=== PATIENT | male | born 1980 | race Caucasian/White ===

== ENCOUNTER → 2017-09-10 | Outpatient (CLI) | payer OTHER ==
[~2017-09-10] MED LIST: OPTIRAY 320 IV PRN
--- NOTE | 2017-09-10 13:54 | DIAGNOSTIC IMAGING REPORT ---
HEAD CTA HISTORY: Syncope. NECK PAIN TECHNIQUE: Multiaxial CT images of the head were performed both after the intravenous administration of contrast to evaluate the major cerebral vessels. Maximum intensity projection images were also obtained. A dose lowering technique was utilized adhering to the principles of ALARA. COMPARISON: None. FINDINGS: There is no mass, hematoma, midline shift, or acute infarct. Visualized intracranial internal carotid arteries, distal vertebral arteries, and basilar artery are widely patent. There is no significant stenosis, occlusion, or aneurysm seen within the bilateral ACAs, MCAs, or ventilation worker. The major dural venous sinuses are patent. IMPRESSION: No significant stenosis, occlusion, or aneurysm within the lower [place]. Electronically signed by: Jaspreet Townsend M.D. 09/10/2017 1:52 PM Dictated Date/Time: 09/10/2017 1:47 PM
--- NOTE | 2017-09-10 13:57 | DIAGNOSTIC IMAGING REPORT ---
HEAD CT NONCONTRAST CT DOSE: HISTORY: Syncopal apices. NECK PAIN TECHNIQUE: Multiaxial CT images of the head were performed without the use of intravenous contrast. Automated exposure control was utilized for this study. A dose lowering technique was utilized adhering to the principles of ALARA. Comparison: None. Findings: The paranasal sinuses and mastoid air cells are clear. The calvarium and skull base are intact. The ventricles and sulci are within normal limits. There is no mass, hematoma, midline shift, or acute infarct. Impression: No acute intracranial abnormality. Electronically signed by: Jaspreet Townsend M.D. 09/10/2017 1:56 PM Dictated Date/Time: 09/10/2017 1:52 PM
--- NOTE | 2017-09-10 14:10 | DIAGNOSTIC IMAGING REPORT ---
NECK CTA HISTORY: Neck pain. Syncope. TECHNIQUE: Multiaxial CT images of the neck were performed following the intravenous administration of contrast to evaluate the major cervical vessels. Maximum intensity projection images were also obtained. All measurements were calculated based on NASCET criteria. A dose lowering technique was utilized adhering to the principles of ALARA. COMPARISON STUDY: None. FINDINGS: The aortic arch and proximal great vessels are widely patent. There is no significant stenosis, occlusion, or dissection identified within the bilateral common carotid, internal carotid, or vertebral arteries. The bilateral internal jugular veins appear patent. Incidental note is made of a right azygos lobe in the right lung apex. A few punctate calcification within the bilateral parotid glands. IMPRESSION: No significant stenosis, occlusion, or dissection identified within the carotid or vertebral arteries. Electronically signed by: Jaspreet Townsend M.D. 09/10/2017 2:08 PM Dictated Date/Time: 09/10/2017 1:58 PM
== END | disposition home or self-care (01) ==
LOC: C.CTS 10:55
PROVIDERS: ATTEND Internal Medicine
DX: M54.2 Cervicalgia (principal)

== ENCOUNTER 2019-01-13 14:06 | Inpatient (IN) ==
--- OUTSIDE RECORDS SUMMARY | 2019-01-13 14:08 | External Medical Summary | Continuity of Care Document ---
:1980 Author Name Melissa Bajwa Address Unavailable Unavailable , Care Team Providers Name Role Phone Melissa Bajwa Unavailable [email or web address], UNKNOWN Unavailable Unavailable Problems Active medical history not documented Allergies and Adverse Reactions Allergy history not documented Medications Medications not documented Procedures Procedures not documented Immunizations Immunizations not documented Plan of Treatment Planned Observations Planned Goals not documented Results No Known Results Results not documented
[2019-01-13] MEDS ORDERED: SODIUM CHLORIDE 0.9% 1000ML 1,000 ML IV ONE (14:33)
[2019-01-13 14:44] LABS: Basophils # (auto) 0.02 K/uL (0-0.2); Basophils % (auto) 0.2 %; Eosinophils % (auto) 1.2 %; Hematocrit (blood only) 43.1 % (42-52); Hemoglobin 15.1 g/dL (14.0-18.0); Immature Granulocytes # (auto) 0.03 K/uL (0.00-0.02); Immature Granulocytes % (auto) 0.4 %; Lymphocytes # (auto) 2.55 K/uL (1.2-3.4); Mean Corpuscular Volume 85.9 fL (80-100); Mean Platelet Volume 10.1 fL (7.4-10.4); Monocytes # (auto) 0.83 K/uL (0.11-0.59); Monocytes % (auto) 9.8 %; Neutrophils # (auto) 4.98 K/uL (1.4-6.5); Neutrophils % (auto) 58.4 %; Platelet Count 214 K/uL (130-400); RDW Coefficient of Variation 13.4 % (11.5-14.5); RDW Standard Deviation 41.8 fL (36.4-46.3); Red Blood Count 5.02 M/uL (4.7-6.1); White Blood Count 8.51 K/uL (4.8-10.8)
[2019-01-13] MEDS ORDERED: ALBUT/IPRATROP 3MG/0.5MG NEB 3 ML VIAL NEB STA (14:47)
[2019-01-13] MEDS ORDERED: GI COCKTAIL ED USE PO ONE (14:47)
[2019-01-13] MEDS ORDERED: FAMOTIDINE 20 MG TAB PO ONE (14:47)
[2019-01-13] MEDS ORDERED: ACETAMINOPHEN 1,000 MG/100 ML VIAL IV STA (14:48)
[2019-01-13 15:00] LABS: Alanine Aminotransferase 40 U/L (12-78); Aspartate Aminotransferase 27 U/L (15-37); BUN Creatinine Ratio 16.9 (10-20); Blood Urea Nitrogen 15 mg/dl (7-18); Calcium 9.4 mg/dl (8.5-10.1); Carbon Dioxide 24 mmol/L (21-32); Chloride 108 mmol/L (98-107); Est GFR (African American) 124.3; Est GFR (Non-African American) 107.2; Glucose 83 mg/dl (70-99); Magnesium 2.5 mg/dl (1.8-2.4); Sodium 141 mmol/L (136-145)
[2019-01-13 15:13] LABS: Alkaline Phosphatase 78 U/L (45-117); Bilirubin,Total 0.3 mg/dl (0.2-1); Globulin 3.8 gm/dl (2.5-4.0); Total Protein 7.8 gm/dl (6.4-8.2)
--- NOTE | 2019-01-13 15:28 | XRay Report ---
XR chest 1V portable HISTORY: 38 years-old Male Chest Pain acute atypical chest pain with shortness of breath COMPARISON: Chest radiograph 01/14/2011 TECHNIQUE: Portable AP view of the chest FINDINGS: Cardiac mediastinal and hilar silhouettes are within normal limits. There is no pneumothorax, pleural effusion, focal airspace consolidation or overt pulmonary edema. Incidental note is made of an azygo s lobe and fissure. Bones of the chest appear grossly intact. IMPRESSION: No acute process. The above report was generated using voice recognition software. It may contain grammatical, syntax o r spelling errors. Electronically signed by: Kamari Salcedo M.D. 01/13/2019 3:26 PM
[2019-01-13] MEDS ORDERED: OPTIRAY 320 125ml IV PRN (16:02)
[2019-01-13 16:09] LABS: Partial Thromboplastin Time 26.2 Seconds (21.0-31.0); Prothrombin Time 9.9 Seconds (9.0-12.0)
--- NOTE | 2019-01-13 16:12 | CT Scan Report ---
CT ANGIOGRAM OF THE CHEST CLINICAL HISTORY: Dyspnea. COMPARISON STUDY: Chest x-ray dated 01/13/2019. TECHNIQUE: Following the IV administration of 107 cc of Optiray 320, CT angiogram of the chest was pe rformed from the upper abdomen to the thoracic inlet utilizing the pulmonary embolus protocol. Images are reviewed in the axial, sagittal, and coronal planes. 3-D MIPS images are created and assessed. I V contrast was administered without complication. A dose lowering technique was utilized adhering to the principles of ALARA. The examination is modestly degraded by motion artifact. CT DOSE: 939.10 mGy.cm FINDINGS: Thyroid: Imaged portions of the thyroid gland are normal in size and attenuation. Thoracic aorta: The thoracic aorta is normal in caliber and demonstrates 4-vessel variant arch anatom y. No dissection is seen. Pulmonary vasculature: The pulmonary trunk is normal in caliber. There are no filling defects identif ied in main, lobar, or segmental pulmonary branches to suggest pulmonary embolus. Heart: The heart is mildly enlarged and without pericardial effusion. Lungs and pleural spaces: Evaluation of the lung parenchyma is modestly degraded by motion artifact. There is no airspace consolidation or pleural effusion. Mild bibasilar atelectasis is noted. There is mild diffuse peribronchial thickening. An accessory azygous fissure is incidentally noted. The trach ea and central airways are patent. A 6 mm left upper lobe pulmonary nodule is seen on image #[id number]. Mediastinum: There is no mediastinal lymphadenopathy. Shanna: Clear. Axillae: There is no axillary lymphadenopathy. Upper abdomen: There is hepatic steatosis with sparing adjacent to the gallbladder fossa. A small hia yusra hernia is noted. Skeletal structures: No lytic or blastic bony lesions are seen. IMPRESSION: 1. There is no evidence of pulmonary embolus in the main, lobar, or segmental pulmonary arteries. 2. Mild cardiac enlargement. 3. There is no airspace consolidation or pleural effusion. 4. Mild diffuse peribronchial thickening suggests reactive airway disease. Clinical correlation will be required. 5. There is a 6 mm pathologically indeterminant pulmonary nodule in the left upper lobe. This can be followed if clinically warranted. See below. 6. Hepatic steatosis. Please refer to below summary of Fleischner criteria recommendations for follow-up of incidental CT n seb [place], Guidelines for management of small pulmonary nodules detected on CT scans: A sta tement from the Fleischner Society, Radiology 237: [phone].) SOLID NODULES Solitary nodule size: <6 mm * low risk patients: no follow-up needed * high risk patients: optional CT at 12 months Solitary nodule size: 6-8 mm * low risk patients: follow-up at 6-12 months, then consider further follow-up at 18-24 months * high risk patients: initial follow-up CT at 6-12 months and then at 18-24 months if no change Solitary nodule size: >8 mm * either low or high risk patients - consider follow-up CT at 3 months, and/or CT-PET, and/or biopsy Multiple nodules size: <6 mm * low risk patients: no routine follow-up * high risk patients: optional CT at 12 months Multiple nodules size: 6-8 mm * low risk patients: follow-up at 3-6 months, then consider further follow-up at 18-24 months * high risk patients: follow-up at 3-6 months, then at 18-24 months if no change Multiple nodules size: >8 mm * low risk patients: follow-up at 3-6 months, then consider further follow-up at 18-24 months * high risk patients: follow-up at 3-6 months, then at 18-24 months if no change Note: newly detected indeterminate nodule in persons 35 years of age or older. * low risk patients: minimal or absent history of smoking and/or other known risk factors * high risk patients: history of smoking or of other known risk factors (e.g. first degree relative with lung cancer, or exposure to asbestos, radon, uranium) * if a nodule up to 8 mm is partly solid or is ground glass further follow-up is required after 24 m onths to exclude possible slow growing adenocarcinoma (FITO) SUBSOLID NODULES Solitary pure ground-glass nodule * nodule size <6 mm - no CT follow-up required * nodule size >=6 mm - follow-up CT at 6-12 months, then every 2 years until 5 years Solitary part-solid nodule * nodule size <6 mm - no CT follow-up required * nodule size >=6 mm - follow-up CT at 3-6 months. If unchanged, and solid component remains <6 mm, then annual follow-up for 5 years Multiple subsolid nodules * nodule size <6 mm - follow-up CT at 3-6 months, consider further follow-up at 2 and 4 years if sta ble * nodule size >=6 mm - follow-up CT at 3-6 months, subsequent management based on the most suspiciou s nodule(s) Electronically signed by: Mahesh Garsia M.D. 01/13/2019 4:10 PM
[2019-01-13] MEDS ORDERED: NITROGLYCERIN SL 0.4 MG/TAB TAB SL STA (16:37)
[2019-01-13] MEDS ORDERED: ASPIRIN CHEW 324 MG PO STA (16:39)
--- NOTE | 2019-01-13 17:05 | Emergency Department Note ---
Entered by Scott Liz acting as a scribe for Sam Burden MD History of Present Illness General Chief complaint: Cardiac Assessment Stated complaint: TIGHTNESS IN CHEST,SOB Time Seen by Provider: 01/13/19 14:32 Source: patient History of Present Illness Onset (ago): week(s) (past couple) Location: chest Pain Consistency: + other (persistent and worsening) Quality: + other (chest tightness, shortness of breath) Associated symptoms: + cough; no fever/chills The patient is a 38 year old male who presents to the Emergency Room with complaints of persistent and gradually worsening chest tightness and shortness of breath. The patient reports that his symptoms started a couple of weeks ago while hunting, stating that he became short of breath and developed pain like acid reflux. Over the past couple days his shortness of breath and chest tightness have been worsening. He states that his symptoms are not worse with lying flat. He notes a cough productive of yellow/white sputum. He reports occasional radiating pain into his throat with nausea, but he does not currently feel nauseous and has not vomited. He denies fevers, history of smoking/second- hand exposure, allergies, history of cancer, recent travel/immobility/surgeries, or family history of [place] at a young age. He states that he was sent to the ER by his PCP. He took Dayquil this morning at 08:00. Home Medications Home Medications Medication Instructions Recorded Confirmed Type [id number] 2 cap PO UD 01/13/19 01/13/19 History [Vicks DayQuil Cold-Flu Relief] Allergies Allergy/AdvReac Type Severity Reaction Status Date / Time ibuprofen AdvReac Unknown NAUSEA Verified 01/13/19 15:23 Past Med/Surg History Medical History Anxiety PTSD (post-traumatic stress disorder) Surgical History No history of previous surgery (Chronic) Family History Father Diabetes Mother Cancer Social History Preferred Language: Romanian Communication Ability: Effective Beliefs That Will Affect Care: None Current Living Situation: Spouse Other Information That Helps Us Care for You: No Feels Safe at Home: Yes Safety Concerns: Feels Safe At This Time Smoking Status: Never smoker Tobacco Type: smokeless tobacco Hx Alcohol Use: Yes (6 drinks/week) Alcohol type: beer Hx Substance Use: No Review of Systems See HPI for pertinent positives & negatives. and A total of 10 systems reviewed and were otherwise negative Physical Exam Vital Signs Vital Signs - 24 hr 01/13/19 14:10 01/13/19 14:35 01/13/19 14:36 Temperature 37.0 C Temperature Source Oral Sepsis Recent Fever Within 48 Hours No Sepsis Action Taken by Nursing No Action Required Pulse Rate 80 70 Pulse Rate [Radial] Pulse Rate from SpO2 Sensor 72 Respiratory Rate 20 20 Blood Pressure 143/95 H 161/88 H Blood Pressure [Left Arm] Blood Pressure Mean 111 112 Blood Pressure Mean [Left Arm] Blood Pressure Position [Left Arm] Pulse Oximetry 95 96 93 Oxygen Delivery Method Room Air Room Air Room Air 01/13/19 15:00 01/13/19 15:30 01/13/19 15:31 Temperature Temperature Source Sepsis Recent Fever Within 48 Hours Sepsis Action Taken by Nursing Pulse Rate 75 65 67 Pulse Rate [Radial] Pulse Rate from SpO2 Sensor 75 64 68 Respiratory Rate 17 14 20 Blood Pressure 134/83 Blood Pressure [Left Arm] Blood Pressure Mean 100 Blood Pressure Mean [Left Arm] Blood Pressure Position [Left Arm] Pulse Oximetry 93 91 92 Oxygen Delivery Method Room Air Room Air Room Air 01/13/19 15:32 01/13/19 16:04 01/13/19 16:30 Temperature Temperature Source Sepsis Recent Fever Within 48 Hours Sepsis Action Taken by Nursing Pulse Rate 66 76 86 Pulse Rate [Radial] Pulse Rate from SpO2 Sensor 62 81 86 Respiratory Rate 14 20 28 H Blood Pressure 145/86 H Blood Pressure [Left Arm] Blood Pressure Mean 105 Blood Pressure Mean [Left Arm] Blood Pressure Position [Left Arm] Pulse Oximetry 93 97 97 Oxygen Delivery Method Room Air Room Air Room Air 01/13/19 16:31 01/13/19 17:00 01/13/19 17:01 Temperature Temperature Source Sepsis Recent Fever Within 48 Hours Sepsis Action Taken by Nursing Pulse Rate 79 69 70 Pulse Rate [Radial] Pulse Rate from SpO2 Sensor 80 68 69 Respiratory Rate 23 16 19 Blood Pressure 152/72 H 156/82 H Blood Pressure [Left Arm] Blood Pressure Mean 98 106 Blood Pressure Mean [Left Arm] Blood Pressure Position [Left Arm] Pulse Oximetry 97 97 96 Oxygen Delivery Method Room Air Room Air Room Air 01/13/19 17:30 01/13/19 17:31 01/13/19 17:32 Temperature Temperature Source Sepsis Recent Fever Within 48 Hours Sepsis Action Taken by Nursing Pulse Rate 62 67 73 Pulse Rate [Radial] Pulse Rate from SpO2 Sensor 62 68 72 Respiratory Rate 17 15 15 Blood Pressure 148/85 H Blood Pressure [Left Arm] Blood Pressure Mean 106 Blood Pressure Mean [Left Arm] Blood Pressure Position [Left Arm] Pulse Oximetry 97 97 97 Oxygen Delivery Method Room Air Room Air Room Air 01/13/19 18:00 01/13/19 18:01 01/13/19 19:29 Temperature 36.8 C Temperature Source Oral Sepsis Recent Fever Within 48 Hours Sepsis Action Taken by Nursing Pulse Rate 63 61 Pulse Rate [Radial] 73 Pulse Rate from SpO2 Sensor 65 61 Respiratory Rate 23 20 20 Blood Pressure 137/74 Blood Pressure [Left Arm] 150/86 H Blood Pressure Mean 95 Blood Pressure Mean [Left Arm] 107 Blood Pressure Position [Left Arm] Lying Pulse Oximetry 95 96 96 Oxygen Delivery Method Room Air Room Air Room Air 01/13/19 23:24 01/14/19 01:32 01/14/19 02:56 Temperature 36.4 C L 36.6 C Temperature Source Axillary Axillary Sepsis Recent Fever Within 48 Hours Sepsis Action Taken by Nursing Pulse Rate 53 L Pulse Rate [Radial] 54 L 59 L Pulse Rate from SpO2 Sensor Respiratory Rate 19 19 Blood Pressure Blood Pressure [Left Arm] 112/63 119/74 Blood Pressure Mean Blood Pressure Mean [Left Arm] 79 89 Blood Pressure Position [Left Arm] Lying Lying Pulse Oximetry 95 95 Oxygen Delivery Method Room Air Room Air GENERAL: Awake, alert, fatigued-appearing, in no distress, BMI 37.7kg/m2 HENT: Normocephalic, atraumatic. Mucous membranes dry. EYES: Normal conjunctiva. Sclera non-icteric. NECK: Supple. No nuchal rigidity. FROM. No JVD. RESPIRATORY: Scant intermittent wheeze, otherwise clear. CARDIAC: Regular rate, normal rhythm. Extremities warm and well perfused. Pulses equal. ABDOMEN: Soft, non-distended. Mild epigastric discomfort without discrete tenderness to palpation. No rebound or guarding. No masses. RECTAL: Deferred. MUSCULOSKELETAL: Chest with mild reproducible anterior CW discomfort. The back is symmetrical on inspection without obvious abnormality. There is no CVA tenderness to palpation. No joint edema. LOWER EXTREMITIES: Calves are equal size bilaterally and non-tender. No edema. No discoloration. NEURO: Normal sensorium. No sensory or motor deficits noted. SKIN: No rash or jaundice noted. Course 1443: The patient was evaluated in room B3B. A complete history and physical examination were performed. 1545: I checked on the patient and updated him on current results and plan. 1622: I reevaluated the patient, who appears to be doing well. Limited bedside ultrasound performed by ne showed no overt pericardial effusion and a grossly normal EF. 1635: I consulted Kenya Blackburn PA-C: [facility] Hospitalist. The patient will be reevaluated for hospitalization. Administered Medications Acetaminophen (Tylenol) 650 mg PO Q4H PRN PRN Reason: Pain or Fever Stop: 02/12/19 18:24 Last Admin: 01/14/19 03:01 Dose: 650 mg Documented by: [id number] Atorvastatin Calcium (Lipitor) 80 mg PO QAM [facility] Stop: 02/12/19 19:29 Last Admin: 01/13/19 19:59 Dose: 80 mg Documented by: [id number] Famotidine 20 mg/ Syringe 5 mls @ 2.5 mls/min IV BID [facility] Stop: 02/12/19 20:59 Last Admin: 01/13/19 19:59 Dose: 2.5 mls/min Documented by: [id number] Sodium Chloride (Nss 1000ml) 1,000 mls @ 80 mls/hr IV .[id number] [facility] Stop: 02/12/19 23:54 Last Admin: 01/13/19 20:05 Dose: 80 mls/hr Documented by: [id number] Heparin Sodium/Dextrose (Heparin Sodium/Dextrose) 25,000 units in 500 mls @ 36 mls/hr IV .[id number] [facility]; Protocol Stop: 02/12/19 19:44 Last Titration: 01/14/19 00:22 Dose: 1,800 units/hr, 36 mls/hr Documented by: [id number] Cosigned by: [id number] Titration: 01/13/19 23:15 Dose: 1,800 units/hr, 36 mls/hr Documented by: [id number] Cosigned by: [id number] Admin: 01/13/19 20:17 Dose: 1,800 units/hr, 36 mls/hr Documented by: [id number] Cosigned by: [id number] Nitroglycerin (Nitro-Bid 2%) 0.5 inch EXT Q6H [facility] Stop: 02/12/19 19:59 Last Admin: 01/14/19 01:53 Dose: 0.5 inch Documented by: [id number] Admin: 01/13/19 19:26 Dose: 0.5 inch Documented by: [id number] Discontinued Medications Al Hydrox/Mg Hydrox/Simethicone () 1 dose PO ONE ONE Stop: 01/13/19 14:48 Last Admin: 01/13/19 15:00 Dose: 1 dose Documented by: [id number] Albuterol (Duoneb) 3 ml NEB NOW STA Stop: 01/13/19 14:48 Last Admin: 01/13/19 14:58 Dose: 3 ml Documented by: [id number] Aspirin (Aspirin) 324 mg PO NOW STA Stop: 01/13/19 16:40 Last Admin: 01/13/19 16:57 Dose: 324 mg Documented by: [id number] Famotidine (Pepcid) 20 mg PO NOW ONE Stop: 01/13/19 14:48 Last Admin: 01/13/19 14:58 Dose: 20 mg Documented by: [id number] Heparin Sodium (Porcine) (Heparin Iv Bolus) Confirm Administered Dose 10,000 units .ROUTE .STK-MED ONE Stop: 01/13/19 18:05 Last Admin: 01/13/19 18:08 Dose: 8,000 units Documented by: [id number] Cosigned by: [id number] Heparin Sodium/Dextrose () 1 ea IV NOW STA; Protocol Stop: 01/13/19 17:33 Last Admin: 01/13/19 18:09 Dose: Not Given Documented by: [id number] Heparin Sodium/Dextrose (Heparin Sodium/Dextrose) Confirm Administered Dose 25,000 units IV .STK-MED ONE Stop: 01/13/19 18:05 Last Admin: 01/13/19 18:09 Dose: 36 ml Documented by: [id number] Cosigned by: [id number] Sodium Chloride (Nss 1000ml) 1,000 mls @ 999 mls/hr IV .[id number] ONE Stop: 01/13/19 15:33 Last Infusion: 01/13/19 15:53 Dose: 0 mls/hr Documented by: [id number] Admin: 01/13/19 14:58 Dose: 999 mls/hr Documented by: [id number] Acetaminophen (Ofirmev) 1,000 mg in 100 mls @ 400 mls/hr IV NOW STA Stop: 01/13/19 15:02 Last Infusion: 01/13/19 15:14 Dose: 0 mls/hr Documented by: [id number] Admin: 01/13/19 14:59 Dose: 400 mls/hr Documented by: [id number] Dextrose/Sodium Chloride (D5w And Nss) 1,000 mls @ 80 mls/hr IV .[id number] [facility]IZ[facility]ETH Stop: 01/14/19 23:55 Last Infusion: 01/13/19 22:13 Dose: 0 mls/hr Documented by: [id number] Admin: 01/13/19 18:46 Dose: 80 mls/hr Documented by: [id number] Ioversol (Optiray 320 125ml) 107 ml IV ONCE PRN PRN Reason: Interaction Checking Stop: 01/17/19 16:01 Last Admin: 01/13/19 16:02 Dose: 107 ml Documented by: [id number] Lorazepam (Ativan) 1 mg PO NOW STA Stop: 01/13/19 20:04 Last Admin: 01/13/19 20:17 Dose: 1 mg Documented by: [id number] Metoprolol Tartrate (Lopressor) 12.5 mg PO ONE STA Stop: 01/13/19 19:07 Last Admin: 01/13/19 19:59 Dose: 12.5 mg Documented by: [id number] Nitroglycerin (Nitrostat) 0.4 mg SL NOW STA Stop: 01/13/19 16:38 Last Admin: 01/13/19 16:58 Dose: Not Given Documented by: [id number] Medical Decision Making Differential Diagnosis Differential diagnosis includes: cardiac ischemia, aortic dissection, pulmonary embolism, pneumonia, pneumothorax, musculoskeletal, infections, pericarditis, myocarditis, esophageal rupture, gastrointestinal, as well as others were entertained. Medical Records Attestation: I reviewed the patient's medical records. Home Medications Current Medication List: was personally reviewed by me Laboratory Data Attestation: I reviewed the patient's lab results. Result diagrams: 01/13/19 14:35 01/13/19 14:35 Lab Results 01/13/19 01/13/19 01/13/19 Range/Units 14:35 14:35 14:35 WBC 8.51 (4.8-10.8) K/uL RBC 5.02 (4.7-6.1) M/uL Hgb 15.1 (14.0-18.0) g/dL Hct 43.1 (42-52) % MCV 85.9 (80-100) fL MCH 30.1 (25-34) pg MCHC 35.0 (32-36) g/dL RDW Std Deviation 41.8 (36.4-46.3) fL RDW Coeff of Kerri 13.4 (11.5-14.5) % Plt Count 214 (130-400) K/uL MPV 10.1 (7.4-10.4) fL Immature Gran % (Auto) 0.4 % Neut % (Auto) 58.4 % Lymph % (Auto) 30.0 % Whitley % (Auto) 9.8 % Eos % (Auto) 1.2 % Baso % (Auto) 0.2 % Immature Gran # (Auto) 0.03 H (0.00-0.02) K/uL Neut # (Auto) 4.98 (1.4-6.5) K/uL Lymph # (Auto) 2.55 (1.2-3.4) K/uL Whitley # (Auto) 0.83 H (0.11-0.59) K/uL Eos # (Auto) 0.10 (0-0.5) K/uL Baso # (Auto) 0.02 (0-0.2) K/uL ESR (0-14) mm/hr PT (9.0-12.0) Seconds INR (0.9-1.1) APTT (21.0-31.0) Seconds PTT Ratio Sodium 141 (136-145) mmol/L Potassium 4.0 (3.5-5.1) mmol/L Chloride 108 H (98-107) mmol/L Carbon Dioxide 24 (21-32) mmol/L Anion Gap 9.0 (3-11) BUN 15 (7-18) mg/dl Creatinine 0.90 (0.6-1.4) mg/dl Est Cr Clr Drug Dosing Not Reportable Est GFR ( Amer) 124.3 Est GFR (Non-Af Amer) 107.2 BUN/Creatinine Ratio 16.9 (10-20) Glucose 83 (70-99) mg/dl Calcium 9.4 (8.5-10.1) mg/dl Phosphorus 4.0 Cancelled (2.5-4.9) mg/dl Magnesium 2.5 H (1.8-2.4) mg/dl Total Bilirubin 0.3 (0.2-1) mg/dl AST 27 (15-37) U/L ALT 40 (12-78) U/L Alkaline Phosphatase 78 (45-117) U/L Troponin I 1.100 H* (0-0.045) ng/ml Total Protein 7.8 (6.4-8.2) gm/dl Albumin 4.0 (3.4-5.0) gm/dl Globulin 3.8 (2.5-4.0) gm/dl Albumin/Globulin Ratio 1.0 (0.9-2) Lipase 149 (73-393) U/L 01/13/19 01/13/19 01/13/19 Range/Units 14:35 14:35 17:15 WBC (4.8-10.8) K/uL RBC (4.7-6.1) M/uL Hgb (14.0-18.0) g/dL Hct (42-52) % MCV (80-100) fL MCH (25-34) pg MCHC (32-36) g/dL RDW Std Deviation (36.4-46.3) fL RDW Coeff of Kerri (11.5-14.5) % Plt Count (130-400) K/uL MPV (7.4-10.4) fL Immature Gran % (Auto) % Neut % (Auto) % Lymph % (Auto) % Whitley % (Auto) % Eos % (Auto) % Baso % (Auto) % Immature Gran # (Auto) (0.00-0.02) K/uL Neut # (Auto) (1.4-6.5) K/uL Lymph # (Auto) (1.2-3.4) K/uL Whitley # (Auto) (0.11-0.59) K/uL Eos # (Auto) (0-0.5) K/uL Baso # (Auto) (0-0.2) K/uL ESR 24 H (0-14) mm/hr PT 9.9 (9.0-12.0) Seconds INR 1.0 (0.9-1.1) APTT 26.2 (21.0-31.0) Seconds PTT Ratio 1.0 Sodium (136-145) mmol/L Potassium (3.5-5.1) mmol/L Chloride (98-107) mmol/L Carbon Dioxide (21-32) mmol/L Anion Gap (3-11) BUN (7-18) mg/dl Creatinine (0.6-1.4) mg/dl Est Cr Clr Drug Dosing Est GFR ( Amer) Est GFR (Non-Af Amer) BUN/Creatinine Ratio (10-20) Glucose (70-99) mg/dl Calcium (8.5-10.1) mg/dl Phosphorus (2.5-4.9) mg/dl Magnesium (1.8-2.4) mg/dl Total Bilirubin (0.2-1) mg/dl AST (15-37) U/L ALT (12-78) U/L Alkaline Phosphatase (45-117) U/L Troponin I 1.580 H* (0-0.045) ng/ml Total Protein (6.4-8.2) gm/dl Albumin (3.4-5.0) gm/dl Globulin (2.5-4.0) gm/dl Albumin/Globulin Ratio (0.9-2) Lipase (73-393) U/L 01/13/19 01/13/19 Range/Units 22:46 23:48 WBC (4.8-10.8) K/uL RBC (4.7-6.1) M/uL Hgb (14.0-18.0) g/dL Hct (42-52) % MCV (80-100) fL MCH (25-34) pg MCHC (32-36) g/dL RDW Std Deviation (36.4-46.3) fL RDW Coeff of Kerri (11.5-14.5) % Plt Count (130-400) K/uL MPV (7.4-10.4) fL Immature Gran % (Auto) % Neut % (Auto) % Lymph % (Auto) % Whitley % (Auto) % Eos % (Auto) % Baso % (Auto) % Immature Gran # (Auto) (0.00-0.02) K/uL Neut # (Auto) (1.4-6.5) K/uL Lymph # (Auto) (1.2-3.4) K/uL Whitley # (Auto) (0.11-0.59) K/uL Eos # (Auto) (0-0.5) K/uL Baso # (Auto) (0-0.2) K/uL ESR (0-14) mm/hr PT (9.0-12.0) Seconds INR (0.9-1.1) APTT 59.2 H* (21.0-31.0) Seconds PTT Ratio 2.2 Sodium (136-145) mmol/L Potassium (3.5-5.1) mmol/L Chloride (98-107) mmol/L Carbon Dioxide (21-32) mmol/L Anion Gap (3-11) BUN (7-18) mg/dl Creatinine (0.6-1.4) mg/dl Est Cr Clr Drug Dosing Est GFR ( Amer) Est GFR (Non-Af Amer) BUN/Creatinine Ratio (10-20) Glucose (70-99) mg/dl Calcium (8.5-10.1) mg/dl Phosphorus (2.5-4.9) mg/dl Magnesium (1.8-2.4) mg/dl Total Bilirubin (0.2-1) mg/dl AST (15-37) U/L ALT (12-78) U/L Alkaline Phosphatase (45-117) U/L Troponin I 3.140 H* (0-0.045) ng/ml Total Protein (6.4-8.2) gm/dl Albumin (3.4-5.0) gm/dl Globulin (2.5-4.0) gm/dl Albumin/Globulin Ratio (0.9-2) Lipase (73-393) U/L Imaging Data Radiologist's Impression: Radiology results as stated below per my review and the radiologist's interpretation: CT ANGIOGRAM OF THE CHEST CLINICAL HISTORY: Dyspnea. COMPARISON STUDY: Chest x-ray dated 01/13/2019. TECHNIQUE: Following the IV administration of 107 cc of Optiray 320, CT angiogram of the chest was performed from the upper abdomen to the thoracic inlet utilizing the pulmonary embolus protocol. Images are reviewed in the axial, sagittal, and coronal planes. 3-D MIPS images are created and assessed. IV contrast was administered without complication. A dose lowering technique was utilized adhering to the principles of ALARA. The examination is modestly degraded by motion artifact. CT DOSE: 939.10 mGy.cm FINDINGS: Thyroid: Imaged portions of the thyroid gland are normal in size and attenuation. Thoracic aorta: The thoracic aorta is normal in caliber and demonstrates 4- vessel variant arch anatomy. No dissection is seen. Pulmonary vasculature: The pulmonary trunk is normal in caliber. There are no filling defects identified in main, lobar, or segmental pulmonary branches to suggest pulmonary embolus. Heart: The heart is mildly enlarged and without pericardial effusion. Lungs and pleural spaces: Evaluation of the lung parenchyma is modestly degraded by motion artifact. There is no airspace consolidation or pleural effusion. Mild bibasilar atelectasis is noted. There is mild diffuse peribronchial thickening. An accessory azygous fissure is incidentally noted. The trachea and central airways are patent. A 6 mm left upper lobe pulmonary nodule is seen on image #172. Mediastinum: There is no mediastinal lymphadenopathy. Shanna: Clear. Axillae: There is no axillary lymphadenopathy. Upper abdomen: There is hepatic steatosis with sparing adjacent to the gallbladder fossa. A small hiatal hernia is noted. Skeletal structures: No lytic or blastic bony lesions are seen. IMPRESSION: 1. There is no evidence of pulmonary embolus in the main, lobar, or segmental pulmonary arteries. 2. Mild cardiac enlargement. 3. There is no airspace consolidation or pleural effusion. 4. Mild diffuse peribronchial thickening suggests reactive airway disease. Clinical correlation will be required. 5. There is a 6 mm pathologically indeterminant pulmonary nodule in the left upper lobe. This can be followed if clinically warranted. See below. 6. Hepatic steatosis. Please refer to below summary of Fleischner criteria recommendations for follow- up of incidental CT nodules (Servando Suero, Guidelines for management of small pulmonary nodules detected on CT scans: A statement from the Fleischner Society, Radiology 237: [phone].) SOLID NODULES Solitary nodule size: <6 mm * low risk patients: no follow-up needed * high risk patients: optional CT at 12 months Solitary nodule size: 6-8 mm * low risk patients: follow-up at 6-12 months, then consider further follow-up at 18-24 months * high risk patients: initial follow-up CT at 6-12 months and then at 18-24 months if no change Solitary nodule size: >8 mm * either low or high risk patients - consider follow-up CT at 3 months, and/or CT-PET, and/or biopsy Multiple nodules size: <6 mm * low risk patients: no routine follow-up * high risk patients: optional CT at 12 months Multiple nodules size: 6-8 mm * low risk patients: follow-up at 3-6 months, then consider further follow-up at 18-24 months * high risk patients: follow-up at 3-6 months, then at 18-24 months if no change Multiple nodules size: >8 mm * low risk patients: follow-up at 3-6 months, then consider further follow-up at 18-24 months * high risk patients: follow-up at 3-6 months, then at 18-24 months if no change Note: newly detected indeterminate nodule in persons 35 years of age or older. * low risk patients: minimal or absent history of smoking and/or other known risk factors * high risk patients: history of smoking or of other known risk factors (e.g. first degree relative with lung cancer, or exposure to asbestos, radon, uranium) * if a nodule up to 8 mm is partly solid or is ground glass further follow-up is required after 24 months to exclude possible slow growing adenocarcinoma (FITO) SUBSOLID NODULES Solitary pure ground-glass nodule * nodule size <6 mm - no CT follow-up required * nodule size >=6 mm - follow-up CT at 6-12 months, then every 2 years until 5 years Solitary part-solid nodule * nodule size <6 mm - no CT follow-up required * nodule size >=6 mm - follow-up CT at 3-6 months. If unchanged, and solid component remains <6 mm, then annual follow-up for 5 years Multiple subsolid nodules * nodule size <6 mm - follow-up CT at 3-6 months, consider further follow-up at 2 and 4 years if stable * nodule size >=6 mm - follow-up CT at 3-6 months, subsequent management based on the most suspicious nodule(s) Electronically signed by: Mahesh Garsia M.D. 01/13/2019 4:10 PM XR chest 1V portable HISTORY: 38 years-old Male Chest Pain acute atypical chest pain with shortness of breath COMPARISON: Chest radiograph 01/14/2011 TECHNIQUE: Portable AP view of the chest FINDINGS: Cardiac mediastinal and hilar silhouettes are within normal limits. There is no pneumothorax, pleural effusion, focal airspace consolidation or overt pulmonary edema. Incidental note is made of an azygos lobe and fissure. Bones of the chest appear grossly intact. IMPRESSION: No acute process. The above report was generated using voice recognition software. It may contain grammatical, syntax or spelling errors. Electronically signed by: Kamari Salcedo M.D. 01/13/2019 3:26 PM ECG Data Attestation: I personally reviewed and interpreted this ECG as follows: Indication: chest pain Rate (beats per minute): 62 Rhythm: normal sinus Findings: + other (normal axis); no ST depression and no ST elevation Blood Pressure Blood Pressure Findings: Normal blood pressure Blood Pressure Disposition: did not require urgent referral MDM Narrative The patient is a pleasant 38-year-old gentleman with a past medical history of PTSD and anxiety who presents emergency department with 2 weeks of worsening chest tightness and dyspnea in the setting of having cough and congestion that developed during a hunting trip per hpi. Patient reports he saw his PCP today because he felt particularly worse and was sent to the ED for evaluation. On arrival patient is fatigued appearing but no acute distress, afebrile with stable vital signs. Patient has scant intermittent wheezes but is otherwise clear. EKG unremarkable without evidence of acute ischemia. CXR negative. WBC, H/H, platelets wnl. Chemistry without acidosis. LFTs unremarkable. Troponin 1.1 of unclear significance given the patient's constant symptoms and reassuring EKG. Of note, the patient denies any increased pain when lying flat at night a nd so pericarditis is less likely. Additionally, he does have reproducible anterior chest wall and epigastric discomfort. CTA negative for PE and does demonstrate evidence of reactive airway disease which is consistent with the patient's symptoms and exam. Limited bedside echo demonstrates no overt pericardial effusion and shows grossly normal EF. Patient denies any improvement with IV fluids, Pepcid, GI cocktail, APAP. However, he also reports that his discomfort is quite mild. Case was discussed with Ori Dickeyisinger PAC, who evaluate the patient for admission. Will trial dose of nitro to see if symptoms improve. Ordered for ASA. Repeat delta 2-hour troponin pending and so will defer heparin at this time. Impression & Plan Chest pain, Elevated troponin Discharge Plan Visit Data *Final* Discharge Date/Time: 01/13/19 18:15 Chief Complaint: Cardiac Assessment Stated Complaint: TIGHTNESS IN CHEST,SOB ED Provider: Sam Burden Discharge Problem: Chest pain, Elevated troponin Patient Disposition: Admitted As Inpatient Discharge Instructions Interventions: ED Discharge Assessment Last Done: 01/13/19 18:15 Discharge Problem: Chest pain Qualifiers: Chest pain type: unspecified Qualified Code(s): R07.9 - Chest pain, unspecified The scribe's documentation has been prepared under my direction and personally reviewed by me in its entirety. I confirm that the note above accurately reflects all work, treatment, procedures, and medical decision making performed by me.
--- NOTE | 2019-01-13 17:50 | History & Physical Report ---
Date of Service January 13, 2019 Assessment & Plan (1) Chest pain: (2) Elevated troponin: Pt presented to ER with c/o SOB and intermittent CP x 2 days. CP described as aching across upper chest and also reports low mid chest pain that radiates up to neck and some aching to mid back that radiates up his back. He reports past 2 days with hoarseness and SOB. No fever/chills, cough, sore throat or rhinorrhea. 1 week ago was turkey hunting and walked up hill and became SOB. In ER pt afebrile, P: 80, R: 20, BP: 143/95, 95% on RA Labs unremarkable except for Troponin: 1.1. EKG: NSR, rate [address] changes. CTA CHEST: There is no evidence of pulmonary embolus in the main, lobar, or segmental pulmonary arteries. Mild cardiac enlargement. There is no airspace consolidation or pleural effusion. Mild diffuse peribronchial thickening suggests reactive airway disease. -In ER was given GI cocktail, pepcid, ASA 324mg, albuterol neb. Pt has current aching across upper chest and rates 2/10 on pain scale. Denies current SOB. DDX: NSTEMI, pericarditis, stress induced cardiomyopathy, GERD, URI ACS risk factors: obesity -Monitor Vitals -Repeat EKG in am -Will trend troponin -Echo -ESR pending -lipid panel and A1c in AM -ASA -Nitro prn CP and repeat EKG for CP -NPO -Pepcid IV -Cardiology consult, spoke to investor relations specialist recommends starting heparin. Appreciate recommendations (3) Pulmonary nodule: 6 mm pathologically indeterminant pulmonary nodule in the left upper lobe noted on CT Chest -out patient CT chest follow up 6-12 months DVT Prophylaxis -On Heparin IV Full Code Follows with Dr Cason for routine care Pt was seen with Dr Rodrigues. See addendum History of Present Illness Chief Complaint: CP Primary Care Provider: Phong Cason MD Pt is 38 y/o M without significant PMH presented to ER with c/o SOB and intermittent CP x 2 days. Pt states past 2 days with aching across upper chest and also reports low mid chest pain that radiates up to neck and some aching to mid back that radiates up his back. Current aching across upper chest and rates 2/10 on pain scale. He reports past 2 days has hoarseness and SOB and he felt like he was getting bronchitis, however denies any cough, wheezing, fever/chills, rhinorrhea, sore throat, dysphagia. His had recent bronchitis. Pt states 1 week ago was turkey hunting and walked up hill and became SOB. Denies other exertional dyspnea or CP previously. Pt reports has been under recent stress as his had a miscarriage and is scheduled for procedure tomorrow. Denies hx GERD. Pt without known hx HTN, HLD or DM. Was former smokeless tobacco user. No known FH CAD. Denies diaphoresis, N/V/D/C, HOLLIS, dizziness, syncope, vision changes, orthopnea, palpitations, choking, otalgia, abdominal pain, paresthesias, weakness, extremity weakness, extremity edema, rashes, urinary symptoms. Allergies Allergy/AdvReac Type Severity Reaction Status Date / Time ibuprofen AdvReac Unknown NAUSEA Verified 01/13/19 15:23 Home Medications Home Medications Medication Instructions Recorded Confirmed Type iqazpdsbiodqm-YM-[id number] 2 cap PO UD 01/13/19 01/13/19 History [Rebeca DayPhi Cold-Flu Relief] Past Med/Surg History Medical History Anxiety PTSD (post-traumatic stress disorder) Surgical History No history of previous surgery (Chronic) Social History Preferred Language: Burkinan Communication Ability: Effective Beliefs That Will Affect Care: None Current Living Situation: Spouse Other Information That Helps Us Care for You: No Feels Safe at Home: Yes Safety Concerns: Feels Safe At This Time Smoking Status: Never smoker Tobacco Type: smokeless tobacco Hx Alcohol Use: Yes (6 drinks/week) Alcohol type: beer Hx Substance Use: No Review of Systems Review of Systems: All systems reviewed & are unremarkable except as noted in HPI & below Physical Exam Physical Exam: General: no distress, WDWN, non-ill appearing Head: normocephalic, atraumatic Eyes: PERRL, EOM's intact, conjunctiva non-injected, anicteric ENT: normal inspection external ears, nose, mucous membranes moist Neck: supple, trachea midline, non-tender Lungs: clear, no respiratory distress, no wheezing/rhonchi/rales CV: RRR, no murmur, no JVD, no pretibial edema Abd: normal BS, soft, non-tender Ext: no cyanosis, no calf tenderness Neuro: A&O x 3, no focal deficits noted, normal affect Skin: warm, dry Results & Data Vital Signs (Past 12 Hours) Vital Signs Temp Pulse Resp BP Pulse Ox 01/13/19 17:31 67 15 148/85 H 97 01/13/19 17:30 62 17 97 01/13/19 17:01 70 19 156/82 H 96 01/13/19 17:00 69 16 97 01/13/19 16:31 79 23 152/72 H 97 01/13/19 16:30 86 28 H 97 01/13/19 16:04 76 20 145/86 H 97 01/13/19 15:32 66 14 93 01/13/19 15:31 67 20 134/83 92 01/13/19 15:30 65 14 91 01/13/19 15:00 75 17 93 01/13/19 14:36 70 20 161/88 H 93 01/13/19 14:35 96 01/13/19 14:10 37.0 C 80 20 143/95 H 95 Laboratory Results Short CBC 01/13/19 Range/Units 14:35 WBC 8.51 (4.8-10.8) K/uL Hgb 15.1 (14.0-18.0) g/dL Hct 43.1 (42-52) % Plt Count 214 (130-400) K/uL BMP 01/13/19 14:35 Sodium 141 Potassium 4.0 Chloride 108 H Carbon Dioxide 24 BUN 15 Creatinine 0.90 Glucose 83 Calcium 9.4 Cardiac Enzymes 01/13/19 01/13/19 Range/Units 14:35 17:15 Troponin I 1.100 H* 1.580 H* (0-0.045) ng/ml Liver Function 01/13/19 Range/Units 14:35 Total Bilirubin 0.3 (0.2-1) mg/dl AST 27 (15-37) U/L ALT 40 (12-78) U/L Alkaline Phosphatase 78 (45-117) U/L Albumin 4.0 (3.4-5.0) gm/dl Diagnostic Findings CXR: IMPRESSION: No acute process. CTA CHEST: IMPRESSION: 1. There is no evidence of pulmonary embolus in the main, lobar, or segmental pulmonary arteries. 2. Mild cardiac enlargement. 3. There is no airspace consolidation or pleural effusion. 4. Mild diffuse peribronchial thickening suggests reactive airway disease. Clinical correlation will be required. 5. There is a 6 mm pathologically indeterminant pulmonary nodule in the left upper lobe. This can be followed if clinically warranted. See below. 6. Hepatic steatosis. ECG Rate (beats per minute): 62 Rhythm: normal sinus Supervising Physician Co-Signing Physician Notes Patient is a 38-year-old male with no significant medical history presents with history of shortness of breath and intermittent chest pain since 2 days duration. Patient describes the chest pain to be on the upper chest and also retrosternal region which radiates to the neck and sometimes to the mid back. He states undergoing through a lot of stress. Please review HPI for complete details of presentation. Patient was noted to have elevated troponins. EKG did not show any signs of acute ischemia. He is a former smoker. CT suggestive of no PE, showed left upper lobe 6 mm nodule. On exam patient is well-built and nourished, no apparent distress, normocephalic atraumatic, lungs are clear to auscultation, S1-S2 no murmur, abdomen soft nontender, no pedal edema, no neurological deficits. Patient was given aspirin while in ED. Was also started on IV heparin for possible NSTEMI. Patient will be kept n.p.o. for possible cardiac catheterization in a.m. Cardiology is consulted. Appreciate recommendations. Patient will need repeat CT chest in 6 months to evaluate for pulmonary nodule. I personally reviewed the record. Patient is interviewed and examined at bedside. Patient's care is coordinated with Kecia Gonzales. Please refer to the documentation above for details of patient's presentation and for discussion of other issues. (1) Chest pain Chest pain type: unspecified Qualified Code(s): R07.9 - Chest pain, unspecified
[2019-01-13] MEDS ORDERED: HEPARIN SOD (PORCINE) 1000 UNIT/ML 10 ML VIAL ONE (18:04)
[2019-01-13] MEDS ORDERED: HEPARIN 25000 UNIT/500 ML D5W IV ONE (18:04)
[2019-01-13] MEDS ORDERED: ACETAMINOPHEN 325 MG TAB PO PRN (18:25)
[2019-01-13] MEDS ORDERED: NITROGLYCERIN SL 0.4 MG/TAB TAB SL PRN (18:25)
[2019-01-13] MEDS ORDERED: D5W AND NSS 1,000 ML IV SCH (18:45)
[2019-01-13] MEDS ORDERED: METOPROLOL TARTRATE 25 MG TAB PO STA (19:06)
--- NOTE | 2019-01-13 19:25 | Cardiology Consultation ---
Date of Consultation January 13, 2019 Assessment & Plan (1) NSTEMI (non-ST elevated myocardial infarction): Patient has already received aspirin. We will add low-dose metoprolol tartrate orally, topical nitrates, atorvastatin. Continue unfractionated heparin. Plan for the patient to be n.p.o. after midnight for tentative cardiac catheterization tomorrow. (2) Dyslipidemia: Per review of outpatient chart 1 prior cholesterol panel was available in his record the dates back to 11/19/2015. At that time his total cholesterol was noted to be 290, HDL was 39.3, and his triglyceride level was 564. LDL cholesterol could not be calculated due to the elevated triglyceride level. We will therefore start high intensity statin therapy. (3) Pulmonary nodule: Patient is a non-smoker, per radiology report CT surveillance is recommended at a 6 to 12-month interval. History of Present Illness Attending Physician: Micky Germain DO History of Present Illness Wilfredo Gallegos is a 38 year old male seen in cardiology consultation per the request of Kecia Blackburn PA-C for the evaluation of a non-ST segment elevation acute coronary syndrome. The patient is accompanied by his spouse, Brynn at the bedside. He was seen and examined by the undersigned shortly after his arrival to the PCU, room 241-1. He describes himself as healthy. He has no chronic medical problems. 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 He stated that this morning he felt shortness of breath and mild chest tightness. He also felt that his voice was hoarse and he had a cough. As the day progressed, his shortness of breath as well as chest tightness progressed. He therefore saw family practice at [facility]. An EKG performed there was reportedly normal. As his symptoms progressed, the patient presented for further assessment. EKG tracings performed at 14:14 today and again at 17: 12 revealed normal sinus rhythm with out any ST segment elevation. Per my personal interpretation EKG tracings were normal. CT angiogram of the chest revealed no evidence of pulmonary embolism. A 6 mm indeterminate pulmonary nodule is noted in the left upper lobe. Hepatic steatosis is noted. Laboratory studies revealed elevation his troponin to 1.1 NG per mL at 14: 35 today, which is trended up to 1.58 at 17: 15. During my assessment patient he appeared comfortable. He notes mild residual chest tightness. He is now on unfractionated heparin infusion. His most recent vital signs included a heart rate of 61 blood pressure 137/74. Family History: Patient's mother at age 54 due to complications of breast carcinoma with no known cardiac disease. The patient's father is alive at age 72 she takes medications for prediabetes. No known heart disease. Patient has a sister who is healthy with no known history of heart disease. Allergies Allergy/AdvReac Type Severity Reaction Status Date / Time ibuprofen AdvReac Unknown NAUSEA Verified 01/13/19 15:23 Home Medications Home Medications Medication Instructions Recorded Confirmed Type xfqyygnggvftg-FT-fknqazmrxrcsv 2 cap PO UD 01/13/19 01/13/19 History [Rebeca Hood Cold-Flu Relief] Patient History Medical History Anxiety PTSD (post-traumatic stress disorder) Surgical History No history of previous surgery (Chronic) Social History Preferred Language: Latvian Communication Ability: Effective Beliefs That Will Affect Care: None Current Living Situation: Spouse Other Information That Helps Us Care for You: No Feels Safe at Home: Yes Safety Concerns: Feels Safe At This Time Smoking Status: Never smoker Tobacco Type: smokeless tobacco Hx Alcohol Use: Yes (6 drinks/week) Alcohol type: beer Hx Substance Use: No Review of Systems Review of Systems: All systems reviewed & are unremarkable except as noted in HPI & below Physical Exam Physical Exam: General: no acute distress and stated age Eyes: conjunctiva are pink and non-injected, sclera clear Neck: normal jugular venous pulse, no hepatojugular reflux Chest: normal shape and normal respiratory effort Lungs: clear to auscultation and percussion Cardiac Exam: - regular heart sounds, no murmurs, rubs, or gallops, no jugular venous distention Abdomen: abdomen soft, non-tender, no abnormal masses and no hepatosplenomegaly Musculoskeletal: no gait disturbance, no weakness Extremities: no edema and no cyanosis Neuro:awake, coversant, follows commands, no focal motor deficits Psych: appropriate affect and insight. Results & Data Vital Signs (Past 12 Hours) Vital Signs Temp Pulse Resp BP Pulse Ox 01/13/19 18:01 61 20 137/74 96 01/13/19 18:00 63 23 95 01/13/19 17:32 73 15 97 01/13/19 17:31 67 15 148/85 H 97 01/13/19 17:30 62 17 97 01/13/19 17:01 70 19 156/82 H 96 01/13/19 17:00 69 16 97 01/13/19 16:31 79 23 152/72 H 97 01/13/19 16:30 86 28 H 97 01/13/19 16:04 76 20 145/86 H 97 01/13/19 15:32 66 14 93 01/13/19 15:31 67 20 134/83 92 01/13/19 15:30 65 14 91 01/13/19 15:00 75 17 93 01/13/19 14:36 70 20 161/88 H 93 01/13/19 14:35 96 01/13/19 14:10 37.0 C 80 20 143/95 H 95 Laboratory Results Cardiac Enzymes 01/13/19 01/13/19 Range/Units 14:35 17:15 AST 27 (15-37) U/L Troponin I 1.100 H* 1.580 H* (0-0.045) ng/ml Coagulation 01/13/19 Range/Units 14:35 PT 9.9 (9.0-12.0) Seconds APTT 26.2 (21.0-31.0) Seconds CBC 01/13/19 Range/Units 14:35 WBC 8.51 (4.8-10.8) K/uL RBC 5.02 (4.7-6.1) M/uL Hgb 15.1 (14.0-18.0) g/dL Hct 43.1 (42-52) % Plt Count 214 (130-400) K/uL Neut # (Auto) 4.98 (1.4-6.5) K/uL Lymph # (Auto) 2.55 (1.2-3.4) K/uL [place] # (Auto) 0.83 H (0.11-0.59) K/uL Eos # (Auto) 0.10 (0-0.5) K/uL Baso # (Auto) 0.02 (0-0.2) K/uL Comprehensive Metabolic Panel 01/13/19 Range/Units 14:35 Sodium 141 (136-145) mmol/L Potassium 4.0 (3.5-5.1) mmol/L Chloride 108 H (98-107) mmol/L Carbon Dioxide 24 (21-32) mmol/L BUN 15 (7-18) mg/dl Creatinine 0.90 (0.6-1.4) mg/dl Glucose 83 (70-99) mg/dl Calcium 9.4 (8.5-10.1) mg/dl AST 27 (15-37) U/L ALT 40 (12-78) U/L Alkaline Phosphatase 78 (45-117) U/L Total Protein 7.8 (6.4-8.2) gm/dl Albumin 4.0 (3.4-5.0) gm/dl Intake and Output 01/13/19 01/13/19 01/13/19 06:59 14:59 22:59 Intake Total 1100 / 1100 Balance 1100 / 1100 Intake: IV 1100 / 1100 OFIRMEV 1,000 mg In 100 ml @ 100 / 100 400 mls/hr IV NOW STA Rx#: [id number] Nss 1000ML 1,000 ml @ 999 mls/ 1000 / 1000 hr IV .Q1H1M ONE Rx#:[id number] Other: Weight 126.1 kg 129.7 kg Patient Weight 01/14/19 06:59 Weight 129.7 kg Medications Administered Current Inpatient Medications Acetaminophen (Tylenol) 650 mg PO Q4H PRN PRN Reason: Pain or Fever Stop: 02/12/19 18:24 Aspirin (Ecotrin Ectab) 81 mg PO QAM [facility] Stop: 02/13/19 08:59 Dextrose/Sodium Chloride (D5w And Nss) 1,000 mls @ 80 mls/hr IV .[id number] [facility] Stop: 01/14/19 07:14 Last Admin: 01/13/19 18:46 Dose: 80 mls/hr Documented by: Famotidine 20 mg/ Syringe 5 mls @ 2.5 mls/min IV BID [facility] Stop: 02/12/19 20:59 Sodium Chloride (Nss 1000ml) 1,000 mls @ 80 mls/hr IV .[id number] [facility] Stop: 02/12/19 23:54 Metoprolol Tartrate (Lopressor) 12.5 mg PO BID [facility] Stop: 02/13/19 08:59 Nitroglycerin (Nitrostat) 0.4 mg SL UD PRN PRN Reason: Chest Pain Stop: 02/12/19 18:24 Nitroglycerin (Nitro-Bid 2%) 0.5 inch EXT Q6H [facility] Stop: 02/12/19 19:59
[2019-01-13] MEDS: NITROGLYCERIN 2% OINTMENT 30GM TUBE EXT SCH (19:26)
[2019-01-13] MEDS: ATORVASTATIN 40 MG TAB PO SCH (19:59)
[2019-01-13] MEDS: FAMOTIDINE 20 MG in SYRINGE 3 ML IV SCH (19:59)
[2019-01-13] MEDS ORDERED: LORazepam 1 MG TAB PO STA (20:03)
[2019-01-13] MEDS: SODIUM CHLORIDE 0.9% 1000ML 1,000 ML IV SCH (20:05)
[2019-01-13] MEDS: Heparin Adult STANDARD Wt-Based Dextrose 5% 25,000 units/500 mL IV SCH (20:17)
[2019-01-13] MEDS ORDERED: FAMOTIDINE 20MG/5ML IV PUSH IV SCH (21:00)
[2019-01-14 00:15] LABS: Partial Thromboplastin Ratio 2.2
[2019-01-14 00:17] LABS: Partial Thromboplastin Time 59.2 Seconds (21.0-31.0)
[2019-01-14] MEDS: NITROGLYCERIN 2% OINTMENT 30GM TUBE EXT SCH ×2 (01:53→08:01)
[2019-01-14] MEDS ORDERED: PERFLUTREN LIPID MICROSPHERE (DEFINITY) IV ONE (06:55)
[2019-01-14 07:36] LABS: Hematocrit (blood only) 40.3 % (42-52); Hemoglobin 14.1 g/dL (14.0-18.0); Mean Corpuscular Volume 85.6 fL (80-100); Mean Platelet Volume 9.5 fL (7.4-10.4); Platelet Count 205 K/uL (130-400); RDW Coefficient of Variation 13.4 % (11.5-14.5); Red Blood Count 4.71 M/uL (4.7-6.1); White Blood Count 9.64 K/uL (4.8-10.8)
[2019-01-14] MEDS: Heparin Adult STANDARD Wt-Based Dextrose 5% 25,000 units/500 mL IV SCH (07:58)
[2019-01-14] MEDS: ATORVASTATIN 40 MG TAB PO SCH (08:02)
[2019-01-14] MEDS: ASPIRIN 81 MG ECTAB PO SCH (08:02)
[2019-01-14] MEDS: METOPROLOL TARTRATE 25 MG TAB PO SCH ×2 (08:03→21:08)
[2019-01-14 08:07] LABS: Partial Thromboplastin Ratio 1.7
[2019-01-14] MEDS: FAMOTIDINE 20 MG in SYRINGE 3 ML IV SCH ×2 (08:10→21:07)
[2019-01-14 08:11] LABS: Partial Thromboplastin Time 46.1 Seconds (21.0-31.0)
[2019-01-14] MEDS ORDERED: ASPIRIN 81 MG CHEW PO ONE (08:12)
[2019-01-14 08:13] LABS: BUN Creatinine Ratio 11.8 (10-20); Calcium 9.3 mg/dl (8.5-10.1); Creatinine Clr Calc Pharmacy 147.4 ml/min; Est GFR (African American) 116.4; Est GFR (Non-African American) 100.4; Potassium 3.9 mmol/L (3.5-5.1)
--- NOTE | 2019-01-14 08:14 | Cardiology Progress Note ---
Date of Service January 14, 2019 Assessment & Plan (1) NSTEMI (non-ST elevated myocardial infarction): 38-year-old [employer] member [employer] presented with 1 day of progressive chest tightness. Serial EKGs have been normal. Resting echocardiogram with normal wall motion. Troponin I has been elevated with initial level of 1.1, then 1.58, and trended up to 3.14 last evening at 2246. Repeat was recently drawn at 725 and is currently pending. The patient describes that he has been under a lot of emotional distress. He and his spouse have pursued fertility treatment in the past with past miscarriages. She had a recent and had another miscarriage she is planned for a D&C today with gynecology. He notes that it has been a very emotional time and he has been caring for her, and he notes a lot of stress with his job. Transthoracic echocardiogram reveals normal wall motion. No suggestion of stress-induced cardiomyopathy. I think at this point, most prudent thing is to proceed with invasive coronary angiography to definitively exclude obstructive coronary heart disease. Alternative explanations could include myocarditis but his erythrocyte sedimentation rate was relatively low and he has not had any significant prolonged symptoms to suggest a viral illness. Continue aspirin, metoprolol, unfractionated heparin, atorvastatin. Plan for tentative cardiac catheterization this morning with interventional cardiology. Patient has been on IV fluids overnight given his recent contrast dose for CTA yesterday. Await repeat chemistry panel results. (2) Dyslipidemia: The patient had elevated total cholesterol and elevated triglycerides on blood work performed in 2016. 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 Fasting lipid panel obtained this morning, results currently pending. Continue atorvastatin for now. (3) Pulmonary nodule: Incidental pulmonary nodule noted on CTA. Patient has no history of cigarette smoking. Follow-up CT imaging recommended a 6 to 12-month interval. Subjective Chief complaint: Follow-up chest discomfort Subjective: Patient feels well this morning. He has mild hoarseness of his voice. Denies any sensation of subjective fevers or chills. Chest discomfort has resolved. Telemetry reveals stable sinus rhythm and sinus bradycardia overnight. Review of Systems Review of Systems: All systems reviewed & are unremarkable except as noted in HPI & below Physical Exam Physical Exam: General: no acute distress and stated age Eyes: conjunctiva are pink and non-injected, sclera clear Neck: normal jugular venous pulse, no hepatojugular reflux Chest: normal shape and normal respiratory effort Lungs: clear to auscultation and percussion Cardiac Exam: - regular heart sounds, no murmurs, rubs, or gallops, no jugular venous distention Abdomen: abdomen soft, non-tender, no abnormal masses and no hepatosplenomegaly Musculoskeletal: no gait disturbance, no weakness Extremities: no edema and no cyanosis Neuro:awake, coversant, follows commands, no focal motor deficits Psych: appropriate affect and insight. Results & Data Vital Signs (Past 12 Hours) Vital Signs Temp Pulse Pulse Resp BP Pulse Ox 01/14/19 02:56 36.6 C 59 L 19 119/74 95 01/14/19 01:32 53 L 01/13/19 23:24 36.4 C L 54 L 19 112/63 95 Laboratory Results Cardiac Enzymes 01/13/19 01/13/19 01/13/19 Range/Units 14:35 17:15 22:46 AST 27 (15-37) U/L Troponin I 1.100 H* 1.580 H* 3.140 H* (0-0.045) ng/ml Coagulation 01/13/19 01/13/19 Range/Units 14:35 23:48 PT 9.9 (9.0-12.0) Seconds APTT 26.2 59.2 H* (21.0-31.0) Seconds CBC 01/13/19 01/14/19 Range/Units 14:35 07:25 WBC 8.51 9.64 (4.8-10.8) K/uL RBC 5.02 4.71 (4.7-6.1) M/uL Hgb 15.1 14.1 (14.0-18.0) g/dL Hct 43.1 40.3 L (42-52) % Plt Count 214 205 (130-400) K/uL Neut # (Auto) 4.98 (1.4-6.5) K/uL Lymph # (Auto) 2.55 (1.2-3.4) K/uL [place] # (Auto) 0.83 H (0.11-0.59) K/uL Eos # (Auto) 0.10 (0-0.5) K/uL Baso # (Auto) 0.02 (0-0.2) K/uL Comprehensive Metabolic Panel 01/13/19 Range/Units 14:35 Sodium 141 (136-145) mmol/L Potassium 4.0 (3.5-5.1) mmol/L Chloride 108 H (98-107) mmol/L Carbon Dioxide 24 (21-32) mmol/L BUN 15 (7-18) mg/dl Creatinine 0.90 (0.6-1.4) mg/dl Glucose 83 (70-99) mg/dl Calcium 9.4 (8.5-10.1) mg/dl AST 27 (15-37) U/L ALT 40 (12-78) U/L Alkaline Phosphatase 78 (45-117) U/L Total Protein 7.8 (6.4-8.2) gm/dl Albumin 4.0 (3.4-5.0) gm/dl Intake and Output 01/13/19 01/14/19 01/14/19 22:59 06:59 14:59 Intake Total 1976 / 2123.0 147.0 / 2123.0 273.6 / 273.6 Output Total 500 / 500 Balance 1976 / 1623.0 -353.0 / 1623.0 273.6 / 273.6 Intake: IV 1376 / 1523.0 147.0 / 1523.0 273.6 / 273.6 OFIRMEV 1,000 mg In 100 ml @ 100 / 100 400 mls/hr IV NOW STA Rx#: [id number] D5w and Nss 1,000 ml @ 80 mls/ 276 / 276 hr IV .[id number] [facility] Rx#:[id number] HEPARIN SODIUM/DEXTROSE 25,000 147.0 / 147.0 273.6 / 273.6 units In 500 ml @ 1,800 UNITS/ HR 36 mls/hr IV .[id number] [facility] Rx #:[id number] Nss 1000ML 1,000 ml @ 999 mls/ 1000 / 1000 hr IV .Q1H1M [facility] Rx#:[id number] Oral 600 / 600 Output: Urine 500 / 500 Other: # Unmeasured Voids 2 Weight 129.7 kg Diagnostic Findings G performed this morning 01/14/2019 at 719 reviewed independently by the undersigned revealed normal sinus rhythm at 75 bpm with sinus arrhythmia, normal EKG, unchanged compared to the prior performed yesterday at 17: 12. Bedside transthoracic echocardiogram performed this morning reviewed independently by the undersigned revealed normal left ventricular size and myocardial thickness. Normal wall motion without regional wall motion of normalities, normal LVEF in the range of 55 to 60%. There is no significant valvular heart disease. No pericardial effusion was present. Medications Administered Current Inpatient Medications Acetaminophen (Tylenol) 650 mg PO Q4H PRN PRN Reason: Pain or Fever Stop: 02/12/19 18:24 Last Admin: 01/14/19 03:01 Dose: 650 mg Documented by: Aspirin (Ecotrin Ectab) [facility] Stop: 02/13/19 08:59 Last Admin: 01/14/19 08:02 Dose: 81 mg Documented by: Atorvastatin Calcium (Lipitor) 80 mg PO [facility] Stop: 02/12/19 19:29 Last Admin: 01/14/19 08:02 Dose: 80 mg Documented by: Famotidine 20 mg/ Syringe 5 mls @ 2.5 mls/min IV BID [facility] Stop: 02/12/19 20:59 Last Admin: 01/13/19 19:59 Dose: 2.5 mls/min Documented by: Sodium Chloride (Nss 1000ml) 1,000 mls @ 80 mls/hr IV .[id number] [facility] Stop: 02/12/19 23:54 Last Admin: 01/13/19 20:05 Dose: 80 mls/hr Documented by: Heparin Sodium/Dextrose (Heparin Sodium/Dextrose) 25,000 units in 500 mls @ 36 mls/hr IV .[id number] [facility]; Protocol Stop: 02/12/19 19:44 Last Admin: 01/14/19 07:58 Dose: 1,800 units/hr, 36 mls/hr Documented by: Metoprolol Tartrate (Lopressor) 12.5 mg PO BID [facility] Stop: 02/13/19 08:59 Last Admin: 01/14/19 08:03 Dose: 12.5 mg Documented by: Nitroglycerin (Nitrostat) 0.4 mg SL UD PRN PRN Reason: Chest Pain Stop: 02/12/19 18:24 Nitroglycerin (Nitro-Bid 2%) 0.5 inch EXT Q6H [facility] Stop: 02/12/19 19:59 Last Admin: 01/14/19 08:01 Dose: 0.5 inch Documented by:
[2019-01-14 08:34] LABS: Troponin I 3.64 ng/ml (0-0.045)
[2019-01-14] MEDS: SODIUM CHLORIDE 0.9% 1000ML 1,000 ML IV SCH ×2 (09:26→21:11)
[2019-01-14 09:42] LABS: Estimated Average Glucose 117 mg/dl; Hemoglobin A1C 5.7 % (4.5-5.6)
[2019-01-14] MEDS ORDERED: MIDAZOLAM HCL 1 MG/ML 2ML VIAL ONE ×2 (10:19→11:07)
[2019-01-14] MEDS ORDERED: NiCARDipine HCL INJ 2.5 MG/ML 10 ML AMP ONE (10:20)
[2019-01-14] MEDS ORDERED: fentaNYL citrate 100 MCG/2 ML VIAL ONE ×2 (10:20→11:17)
[2019-01-14] MEDS ORDERED: HEPARIN (PORCINE) 1000 UNIT/ML 10 ML (CATH LAB USE ONLY) ONE (10:20)
[2019-01-14] MEDS ORDERED: NITROGLYCERIN/D5W 100MCG/ML 20ML SYR ONE (10:20)
--- NOTE | 2019-01-14 10:50 | Cardiology Consultation ---
Date of Consultation January 14, 2019 Assessment & Plan (1) NSTEMI (non-ST elevated myocardial infarction): Patient here with atypical chest symptoms found to have rising troponin up to 3.6. No EKG changes or wall motion of normalities on echo. Agree with need to rule out high risk coronary artery disease. We will proceed with cardiac catheterization via right radial artery. Discussed procedure with patient including risk, benefits, alternatives and willing to proceed. Further recommendations pending findings. Thank you for allowing us to participate in the care of this patient. Please contact with any questions. History of Present Illness Attending Physician: Micky Germain DO History of Present Illness Mr. Gallegos is a very pleasant 38-year-old male without significant past medical history whom interventional cardiology asked to see for consideration of cardiac catheterization. Patient was admitted after 2 days of chest tightness, shortness of breath which initially thought was secondary to an upper respiratory tract infection. Troponin elevated to 1.1 and has trended up to 3.6 this morning. EKG unremarkable. No regional wall motion abnormalities on echocardiogram. Has been largely symptom-free since yesterday evening. Patient was seen by Dr. Dennison yesterday. He has been maintained on heparin infusion, aspirin, metoprolol and high-dose statin. Allergies Allergy/AdvReac Type Severity Reaction Status Date / Time ibuprofen AdvReac Unknown NAUSEA Verified 01/13/19 15:23 Home Medications Home Medications Medication Instructions Recorded Confirmed Type [id number]-AL-efhrechwsiteu 2 cap PO UD 01/13/19 01/13/19 History [Vikasks DayQuil Cold-Flu Relief] Patient History Medical History Anxiety PTSD (post-traumatic stress disorder) Surgical History No history of previous surgery (Chronic) Family History Father Diabetes Mother Cancer Social History Preferred Language: Algerian Communication Ability: Effective Beliefs That Will Affect Care: None Current Living Situation: Spouse Other Information That Helps Us Care for You: No Feels Safe at Home: Yes Safety Concerns: Feels Safe At This Time Smoking Status: Never smoker Tobacco Type: smokeless tobacco Hx Alcohol Use: Yes (6 drinks/week) Alcohol type: beer Hx Substance Use: No Review of Systems Review of Systems: All systems reviewed & are unremarkable except as noted in HPI & below Physical Exam Physical Exam: General: Comfortable, no acute distress Eyes: Sclerae anicteric, extraocular movements intact HENT: Oropharynx clear mucous membranes moist Lungs: Clear to auscultation bilaterally, no rhonchi or wheezes Cardiac: Regular rate and rhythm, no murmurs, rubs or gallops. Vascular: 2+ radial Abdomen: Soft, nontender, nondistended, positive bowel sounds. Extremities: Well perfused, no peripheral edema Skin: No rashes or lesions. Neuro: Nonfocal Psych: Alert orient x3, normal affect and mood Results & Data Vital Signs (Past 12 Hours) Vital Signs Temp Pulse Pulse Resp BP Pulse Ox 01/14/19 08:07 36.5 C 69 20 121/68 93 01/14/19 02:56 36.6 C 59 L 19 119/74 95 01/14/19 01:32 53 L 01/13/19 23:24 36.4 C L 54 L 19 112/63 95
--- NOTE | 2019-01-14 10:54 | Pre Anesthesia Assessment ---
Date of Service January 14, 2019 Pre Sedation Assessment Vital Signs Temp Pulse Pulse Resp BP BP Pulse Ox 01/14/19 08:07 36.5 C 69 20 121/68 93 01/14/19 02:56 36.6 C 59 L 19 119/74 95 01/14/19 01:32 53 L 01/13/19 23:24 36.4 C L 54 L 19 112/63 95 01/13/19 19:29 36.8 C 73 20 150/86 H 96 01/13/19 18:01 61 20 137/74 96 01/13/19 18:00 63 23 95 01/13/19 17:32 73 15 97 01/13/19 17:31 67 15 148/85 H 97 01/13/19 17:30 62 17 97 01/13/19 17:01 70 19 156/82 H 96 01/13/19 17:00 69 16 97 01/13/19 16:31 79 23 152/72 H 97 01/13/19 16:30 86 28 H 97 01/13/19 16:04 76 20 145/86 H 97 01/13/19 15:32 66 14 93 01/13/19 15:31 67 20 134/83 92 01/13/19 15:30 65 14 91 01/13/19 15:00 75 17 93 01/13/19 14:36 70 20 161/88 H 93 01/13/19 14:35 96 01/13/19 14:10 37.0 C 80 20 143/95 H 95 Cardiovascular RRR, no murmur, no edema Respiratory normal respiratory effort, lungs clear to auscultation Pre-Sedation Airway Assessment Smoking Status: Never smoker Hx Sleep Apnea: No Hx Difficult Intubation: No Short, Thick Neck: No Thyromental Distance: > or= 3.5 Finger Breadths Oral Cavity: + WNL Mallampati Class: III ASA: ASA2 NPO Status Date of Last Intake of Fluids: 01/14/19 Time of Last Intake of Fluids: 08:00 Last Oral Intake of Fluids Comment: sip with meds Date of Last Intake of Solid Food: 01/13/19 Procedure Planning Contraindications for Sedation: none Current Medications Reviewed: Yes Notes The planned sedation has been discussed with the patient. Informed Consent was obtained. I have identified the patient, determined the appropriateness of sedation and have assessed the patient immediately prior to the procedure. All medicine(s) and interventions are by my order.
--- NOTE | 2019-01-14 11:19 | Hospitalist Progress Note ---
Date of Service January 14, 2019 Assessment & Plan (1) NSTEMI (non-ST elevated myocardial infarction): (2) Chest pain: (3) Elevated troponin: (4) Obesity (BMI 30-39.9): (5) Pulmonary nodule: CTA CHEST: There is no evidence of pulmonary embolus in the main, lobar, or segmental pulmonary arteries. Mild cardiac enlargement. There is no airspace consolidation or pleural effusion. Mild diffuse peribronchial thickening suggests reactive airway disease. -In ER was given GI cocktail, pepcid, ASA 324mg, albuterol neb. Pt has current aching across upper chest and rates 2/10 on pain scale. Denies current SOB. 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 Pt states past 2 days with aching across upper chest and also rep orts low mid chest pain that radiates up to neck and some aching to mid back that radiates up his back. Current aching across upper chest and rates 2/10 on pain scale. He reports past 2 days has hoarseness and SOB and he felt like he was getting bronchitis, however denies any cough, wheezing, fever/chills, rhinorrhea, sore throat, dysphagia. His had recent bronchitis. Pt states 1 week ago was turkey hunting and walked up hill and became SOB. Denies other exertional dyspnea or CP previously. Pt reports has been under recent stress as his had a miscarriage and is scheduled for procedure tomorrow. Denies hx GERD. Pt without known hx HTN, HLD or DM. Was former smokeless tobacco user. No known FH CAD. Denies diaphoresis, N/V/D/C, HOLLIS, dizziness, syncope, vision changes, orthopnea, palpitations, choking, otalgia, abdominal pain, paresthesias, weakness, extremity weakness, extremity edema, rashes, urinary symptoms. ROS-No Headache, No Visual Changes, No Nausea, No Vomiting, No Fever, No Chills, No Neck Pain or Stiffness, No Chest Pain, No Palpitations, No SOB, No SIDDIQUI, No Cough, No Sputum, No Wheezing, No Abdominal Pain, No Diarrhea, No Hematemesis, No Hemoptysis, No Unexpected Weight Loss, No Flank pain, No Melena, No Hematochezia, No Frequency, No Urgency, No Burning, No Hematuria, No Rashes, No Diaphoresis. Appetite is Normal, Feels Fine Physical Exam Gen-AAO x 3, NAD, Afebrile, obese Head-NCAT, EOMI, PERRLA, Anicteric Sclera, No Posterior Pharyngeal Erythema Neck-Supple, No JVD, No Thyromegaly, No Masses, No LAD, No Bruits Lungs-Clear to Auscultation Bilaterally, No Rales, No Rhonchi, No Wheezing, No Crepitus Chest-No S4, +S1, +S2, No S3, No Murmurs, No Rubs, No Gallops, No Ectopy Abdomen-Soft, Bowel Sounds Present, Non Tender, Non Distended, No Hepatomegaly, No Splenomegaly, No Palpable Masses, No Rebound, No Rigidity, No Guarding Musculoskeletal-Full Range of Motion Bilaterally, No CVAT Extremities-No Cyanosis, No Clubbing, No Edema Nuero-Cranial Nerves II-XII grossly intact, Motor WNL, DTRs WNL, Strength WNL, Non Focal Psych-Normal Mood (6) Dyslipidemia: Results & Data Vital Signs (Past 12 Hours) Vital Signs Temp Pulse Pulse Resp BP Pulse Ox 01/14/19 08:07 36.5 C 69 20 121/68 93 01/14/19 02:56 36.6 C 59 L 19 119/74 95 01/14/19 01:32 53 L 01/13/19 23:24 36.4 C L 54 L 19 112/63 95 Current Diagnoses Hyperlipidemia, unspecified (01/14/19) Non-ST elevation (NSTEMI) myocardial infarction (01/14/19) Chest pain, unspecified (01/14/19) Abnormal levels of other serum enzymes (01/14/19) Solitary pulmonary nodule (01/14/19) Allergies ibuprofen Adverse Reaction (Unknown, Verified 01/13/19 15:23) NAUSEA Height/Weight/Isolation Height 6 ft 1 in Weight 129.7 kg Chemistry 01/13/19 01/14/19 14:35 07:25 Sodium 141 141 Potassium 4.0 3.9 Chloride 108 H 110 H Carbon Dioxide 24 25 Anion Gap 9.0 6.0 BUN 15 11 Creatinine 0.90 0.95 Glucose 83 103 H (1) Chest pain Chest pain type: unspecified Qualified Code(s): R07.9 - Chest pain, unspecified
[2019-01-14] MEDS ORDERED: DiphenhydrAMINE HCL 50 MG/ML VIAL ONE (11:25)
[2019-01-14] MEDS ORDERED: methylPREDNISolone 125 MG/2 ML VIAL ONE (11:25)
[2019-01-14] MEDS ORDERED: EPTIFIBATIDE 0.75 MG/ML 75MG VIAL (CATH LAB USE ONLY) ONE (11:46)
[2019-01-14] MEDS ORDERED: EPTIFIBATIDE 2 MG/ML 10 ML VIAL (CATH LAB USE ONLY) ONE (11:46)
[2019-01-14] MEDS ORDERED: TICAGRELOR 90 MG TAB PO ONE (11:52)
--- NOTE | 2019-01-14 11:59 | Post Anesthesia Assessment ---
Date of Service January 14, 2019 Post Sedation Assessment Vital Signs Temp Pulse Pulse Resp BP BP Pulse Ox 01/14/19 08:07 36.5 C 69 20 121/68 93 01/14/19 02:56 36.6 C 59 L 19 119/74 95 01/14/19 01:32 53 L 01/13/19 23:24 36.4 C L 54 L 19 112/63 95 01/13/19 19:29 36.8 C 73 20 150/86 H 96 01/13/19 18:01 61 20 137/74 96 01/13/19 18:00 63 23 95 01/13/19 17:32 73 15 97 01/13/19 17:31 67 15 148/85 H 97 01/13/19 17:30 62 17 97 01/13/19 17:01 70 19 156/82 H 96 01/13/19 17:00 69 16 97 01/13/19 16:31 79 23 152/72 H 97 01/13/19 16:30 86 28 H 97 01/13/19 16:04 76 20 145/86 H 97 01/13/19 15:32 66 14 93 01/13/19 15:31 67 20 134/83 92 01/13/19 15:30 65 14 91 01/13/19 15:00 75 17 93 01/13/19 14:36 70 20 161/88 H 93 01/13/19 14:35 96 01/13/19 14:10 37.0 C 80 20 143/95 H 95 Recovery Score Activity: Moves 4 extremities Respiration: Deep Breath/Cough Circulation: +/-20% PreAnes Value Consciousness: Fully Awake Oxygen Saturation: O2 needed for >90% Discharge Sedation Level of Care: Fast Track Phase II Post Sedation Plan On clinical assessment, the patient appears to have tolerated the sedation without complications. Patient is recovering as anticipated. Patient will continue to be monitored by nursing and may be discharged when sedation discharge criteria are met per below protocol. Upon Completions of procedure and additional 15 minutes continue every 5 minute vital signs and the P.A.R. score; then discharge to a Phase I or Fast Track to Phase II per the following guidelines: * Discharge Patient to appropriate Phase II area if PAR is 8 or greater or return to pre- procedure baseline. The post - procedure orders will be as directed. * If PAR score is less than 8 or not return to pre-procedure baseline then patient will follow Phase I monitoring till PAR is reached for Phase II. The Phase I may be done in procedure room or may call to secure a Phase I area. * If naloxone or flumazenil are used for reversal, hold in Phase I for continued monitoring from when last reversal dose was given for a minimum of 60 minutes or longer pending the nurse and/or physician discretion of patient condition before discharge to Phase II. Please call the Sedation Physician to re-evaluate and complete post-note for discharge to Phase II area. Do NOT discharge from procedure sedation or Phase 1 until post- sedation evaluation note is complete by procedure /sedation MD Sedation Discharge Instructions to be given to the patient at discharge to home.
[2019-01-14] MEDS ORDERED: EPTIFIBATIDE BOLUS/DRIP IV STA (12:20)
[2019-01-14] MEDS ORDERED: ONDANSETRON INJ 2 MG/ML 2 ML VIAL IV PRN (12:20)
--- NOTE | 2019-01-14 12:20 | Cardiac Catheterization ---
Cardiac Cath Procedure Full Procedure Date January 14, 2019 Pre-Procedure Diagnosis Pre-Procedure Diagnosis: Non STEMI AUC Score AUC Score: 8 Post-Procedure Diagnosis Post-Procedure Diagnosis: Severe CAD, Successful PCI and Normal Intracardiac Pressures Procedure(s) Performed Procedure(s) Performed: Coronary Angiography, Left Heart Cath, Drug Eluting Stent and IVUS Business Development Consultant Bret Cobos MD Chaser Apprentice(s) Ese Estimated Blood Loss Estimated Blood Loss: 15 Medication(s) Medication(s): Fentanyl, Heparin, Lidocaine 1%, Nicardipine, Nitroglycerin and Versed Medication(s): Ticagrelor Summary of Findings Indication: NSTEMI Access: 6 Fr right radial artery Catheters: [place], JL 3 5, JR4; AR-1 guide Findings: LM -tortuous, no significant disease LAD -large caliber vessel, no significant disease, tapers at apex. Large first diagonal without significant disease. Circumflex -moderate caliber vessel, angulated takeoff, no significant disease RCA -very large caliber vessel, dominant, subtotal occlusion in mid RCA with heavy thrombus burden. PLB, distal RCA fills via left to right collaterals. LVEDP -15 -- PCI -- Antithrombotic therapy: Heparin, Integrilin, ticagrelor Procedure: RCA cannulated with AR-1 guide IC Integrilin administered Slasher Runner 50 wire passed across lesion into distal vessel Mid RCA lesion predilated with 3.0 compliant balloon Dilated lesion stented with 4.0 x 28 mm Xience Nancy drug-eluting stent Stent post-dilated with 5.0 noncompliant balloon IC vasodilators administered for spasm IVUS used to access extent of coronary plaque and for stent sizing. Revealed mildly calcified plaque primary localized to stented mid segment. Stent mildly underexpanded at proximal aspect and re-dilated with 5.0 NC to high atmospheres. Post procedure ROSEMARIE 3 flow, stent well expanded with minimal residual stenosis and no apparent cardiac complications. Arterial Closure: TR band Summary: 1. Severe single vessel coronary artery disease -Subtotal, acute on chronic mid RCA occlusion with heavy thrombus burden and left to right collaterals 2. Normal intracardiac filling pressure 3. Successful PCI of mid RCA with single drug-eluting stent (4.0 x 28 m Xience Nancy; postdilated with 5.0 NC). 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 Continue dual-antiplatelet therapy for at least one year Continue statin, and ASCVD risk factor modification Consult cardiac Rehab Hemodynamics Rest Ao:: 96/61/77 Final Ao: 95/60/75 LV: 113/15 Recommendations Recommendations: PCI without planned CABG Specimens Specimens: None Radiation Exposure (mGy) 3831 Contrast (mls) 140 Fluids (cc crystalloids) Fluids (cc crystalloids): 200 Drains Drains: none Anesthesia moderate Procedural Complication(s) None Disposition PCU ACC Data: Lead Custodian Cardiac Status Clinical evaluation leading to the procedure CAD Presenation: Non STEMI Anginal Classification: CCS IV Heart Failure: No Cardiogenic Shock within 24 Hours: No Cardiac Arrest within 24 Hours: No Imaging Studies Past 6 Months: Yes Stress Studies Past 6 Months: No Diagnostic Physicians Name: Bret Cobos MD Status: Elective Closure Device Percutaneous Entry Location: Radial Closure Device: Radial Band Recommendations: PCI without planned CABG PCI Indication: PCI for high risk Non-SIDNEY Lesion Segment Name: mid RCA Culprit Artery: Yes Stenosis Prior to Rx (%): 99 Chronic Total Occlusion: No IVUS: Yes FFR: No Pre-Procedure ROSEMARIE Flow: 3 Previously Treated Lesion: No Lesion Complexity: Non-High/Non-C Lesion Length (mm): 20 Thrombus Present: Yes Bifurcation Lesion: No Guidewire Across Lesion: Stenosis Post-Procedure (%): 0 Post-Procedure ROSEMARIE Flow: 3 Devices(s) Deployed: Yes Yes Intraprocedure Events Significant Disection: No Perforation: No
[2019-01-14] MEDS ORDERED: SODIUM CHLORIDE 0.9% 1000ML 1,000 ML IV SCH (12:30)
[2019-01-14] MEDS ORDERED: EPTIFIBATIDE 75 MG/100 ML VIAL IV SCH (12:30)
[2019-01-14] MEDS: TICAGRELOR 90 MG TAB PO SCH (21:08)
[2019-01-15 06:46] LABS: Hematocrit (blood only) 40.5 % (42-52); Hemoglobin 14.2 g/dL (14.0-18.0); Mean Corpuscular Hgb Conc 35.1 g/dL (32-36); Mean Corpuscular Volume 85.6 fL (80-100); Mean Platelet Volume 9.7 fL (7.4-10.4); Platelet Count 212 K/uL (130-400); RDW Coefficient of Variation 13.3 % (11.5-14.5); RDW Standard Deviation 41.7 fL (36.4-46.3); Red Blood Count 4.73 M/uL (4.7-6.1); White Blood Count 13.61 K/uL (4.8-10.8)
[2019-01-15 06:58] LABS: Partial Thromboplastin Ratio 0.9; Partial Thromboplastin Time 24.3 Seconds (21.0-31.0)
[2019-01-15 07:15] LABS: BUN Creatinine Ratio 13.2 (10-20); Calcium 9.3 mg/dl (8.5-10.1); Creatinine Clr Calc Pharmacy 148.4 ml/min; Est GFR (African American) 117.9; Est GFR (Non-African American) 101.7; Potassium 3.9 mmol/L (3.5-5.1)
[2019-01-15 07:50] VITALS: BP 137/84; PULSE 74; TEMP 98.1; O2SAT 95
[2019-01-15] MEDS: ASPIRIN 81 MG ECTAB PO SCH (07:54)
[2019-01-15] MEDS: TICAGRELOR 90 MG TAB PO SCH (07:54)
[2019-01-15] MEDS: ATORVASTATIN 40 MG TAB PO SCH (07:54)
--- NOTE | 2019-01-15 08:44 | Cardiology Progress Note ---
Date of Service January 15, 2019 Assessment & Plan (1) NSTEMI (non-ST elevated myocardial infarction): EKG today reveals new age-indeterminate inferior infarct pattern with Q waves and T wave inversions in the inferior leads III and aVF. This is consistent with evolution of his known inferior infarct and correlates well with his cardiac catheterization findings. The patient was found to have significant single-vessel coronary heart disease. It would appear he has had compromised flow in the right coronary artery for quite some time because he has developed left to right collaterals to the distal right coronary artery territory. Thrombotic total occlusion of the mid RCA was noted, and this likely explains the abrupt onset of his symptoms which were likely nagging to a lesser degree prior to his presentation for acute chest tightness. Due to the thrombotic findings of the right coronary artery occlusion, aspirin plus Brilinta is recommended. The patient is to remain on lifelong low-dose aspirin 81 mg daily. Dual antiplatelet therapy should be continued for a minimum of 1 year at which time ongoing candidacy will be reassessed. Given his age and the thrombotic nature of the occlusion, Brilinta is the preferred agent. I had the cardiology nurses at our office looking to his [id number] cost, and he has a $0 co-pay for the Brilinta so this should be affordable for him. Discharge medications: Aspirin enteric-coated, 81 mg by mouth daily Brilinta 90 mg twice daily Metoprolol succinate 25 mg by mouth daily in the morning Atorvastatin 80 mg by mouth daily. -The patient's blood pressure is well controlled without angiotensin converting enzyme inhibitor or ARB agent, he has normal left ventricular systolic function without clinical heart failure, no history of chronic kidney disease or diabetes, and therefore we will hold off on these medications although his blood pressure is determined to need further control in the future, this will be reassessed as an outpatient. 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 He is to be excused from work until his follow-up visit which is tentatively scheduled with me on 01/28/2019 at 9 AM at [facility]. Patient arrival time 8:45 AM. I have provided a work excuse for him in writing. I sent orders electronically via his [employer] record to the patient's preferred pharmacy, [facility] to include the above medications: Aspirin, atorvastatin, metoprolol, and Brilinta. 30-day supplies in the medication with refills were provided. I have placed a referral to cardiac rehabilitation and we will start the enrollment process paperwork next week. (2) Dyslipidemia: Discharged on atorvastatin 80 mg by mouth daily. Goal LDL less than 70 mg/dL. (3) Pulmonary nodule: Incidental pulmonary nodule noted on CT. He is a low risk patient and is a non-smoker. Interval CT follow-up is recommended a 6 to 12-month interval. Patient to follow-up with PCP. Subjective Chief complaint: Follow-up chest tightness, non-ST segment elevation myocardial infarction, dyslipidemia Subjective: Patient states he is feeling well. He rested relatively well overnight. Telemetry reveals stable sinus rhythm in the 60 bpm range with no arrhythmia. He notes his presenting symptoms of chest tightness and hoarse voice have completely resolved since PCI to the RCA yesterday. He had developed a mild forearm hematoma on the side of his radial artery access site and therefore his Integrilin course was discontinued prior to the previously planned duration, and this improved. He has been walking in the hallway last evening and again this morning with no symptoms suggestive of angina. Review of Systems Review of Systems: All systems reviewed & are unremarkable except as noted in HPI & below Physical Exam Physical Exam: General: no acute distress and stated age Eyes: conjunctiva are pink and non-injected, sclera clear Neck: normal jugular venous pulse, no hepatojugular reflux Chest: normal shape and normal respiratory effort Lungs: clear to auscultation and percussion Cardiac Exam: - regular heart sounds, no murmurs, rubs, or gallops, no jugular venous distention Abdomen: abdomen soft, non-tender, no abnormal masses and no hepatosplenomegaly Musculoskeletal: no gait disturbance, no weakness Extremities: no edema and no cyanosis -Right radial artery access site clean dry and intact, no ecchymosis, mild hematoma noted at the forearm, improved compared to yesterday afternoon Neuro:awake, coversant, follows commands, no focal motor deficits Psych: appropriate affect and insight. Results & Data Vital Signs (Past 12 Hours) Vital Signs Temp Pulse Pulse Resp BP Pulse Ox 01/15/19 07:49 36.7 C 74 19 137/84 95 01/15/19 03:43 36.6 C 76 16 114/66 94 01/14/19 23:42 74 01/14/19 23:14 36.5 C 88 18 135/78 98 Laboratory Results CBC 01/15/19 Range/Units 06:30 WBC 13.61 H (4.8-10.8) K/uL RBC 4.73 (4.7-6.1) M/uL Hgb 14.2 (14.0-18.0) g/dL Hct 40.5 L (42-52) % Plt Count 212 (130-400) K/uL Comprehensive Metabolic Panel 01/15/19 Range/Units 06:30 Sodium 140 (136-145) mmol/L Potassium 3.9 (3.5-5.1) mmol/L Chloride 109 H (98-107) mmol/L Carbon Dioxide 25 (21-32) mmol/L BUN 12 (7-18) mg/dl Creatinine 0.94 (0.6-1.4) mg/dl Glucose 102 H (70-99) mg/dl Calcium 9.3 (8.5-10.1) mg/dl Intake and Output 01/14/19 01/15/19 01/15/19 22:59 06:59 14:59 Intake Total 940 / 4085.734 1855.334 / 4085.734 Balance 940 / 4085.734 1855.334 / 4085.734 Intake: IV 940 / 3735.734 1505.334 / 3735.734 Nss 1000ML 1,000 ml @ 80 mls/hr 940 / 3445.334 1505.334 / 3445.334 IV .[id number] [facility], [facility]1983 Rx#:[id number] Oral 350 / 350 Other: Weight 128.8 kg Diagnostic Findings EKG performed this morning 01/15/2019 and reviewed independently: Normal sinus rhythm at 77 bpm. Age undetermined inferior infarct pattern noted with Q waves in the inferior leads III and aVF with associated T wave inversions in those leads. Compared to the prior tracing dated 01/14/2019 at 719 (prior to cardiac catheterization) the inferior infarct pattern is new. Medications Administered Current Inpatient Medications Acetaminophen (Tylenol) 650 mg PO Q4H PRN PRN Reason: Pain or Fever Stop: 02/12/19 18:24 Last Admin: 01/14/19 03:01 Dose: 650 mg Documented by: Aspirin (Ecotrin Ectab) 81 mg PO QAM [facility] Stop: 02/13/19 08:59 Last Admin: 01/15/19 07:54 Dose: 81 mg Documented by: Atorvastatin Calcium (Lipitor) [facility] [place] Stop: 02/12/19 19:29 Last Admin: 01/15/19 07:54 Dose: 80 mg Documented by: Metoprolol Succinate (Toprol Xl) [facility] [place] Stop: 02/14/19 08:59 Last Admin: 01/15/19 07:55 Dose: 25 mg Documented by: Nitroglycerin (Nitrostat) 0.4 mg SL UD PRN PRN Reason: Chest Pain Stop: 02/12/19 18:24 Ondansetron HCl (Zofran) 4 mg IV Q6H PRN PRN Reason: Nausea And Vomiting Stop: 02/13/19 12:19 Ticagrelor (Brilinta) 90 mg PO BID [facility] Stop: 02/13/19 20:59 Last Admin: 01/15/19 07:54 Dose: 90 mg Documented by:
[2019-01-15] MEDS ORDERED: METOPROLOL SUCC 25MG EXT REL TAB PO SCH (09:00)
--- NOTE | 2019-01-15 10:07 | Discharge Summary ---
Date of Service January 15, 2019 Admission HPI Per Admitting Provider Pt is 38 y/o M without significant PMH presented to ER with c/o SOB and intermittent CP x 2 days. Pt states past 2 days with aching across upper chest and also reports low mid chest pain that radiates up to neck and some aching to mid back that radiates up his back. Current aching across upper chest and rates 2/10 on pain scale. He reports past 2 days has hoarseness and SOB and he felt like he was getting bronchitis, however denies any cough, wheezing, fever/chills, rhinorrhea, sore throat, dysphagia. His had recent bronchitis. Pt states 1 week ago was turkey hunting and walked up hill and became SOB. Denies other exertional dyspnea or CP previously. Pt reports has been under recent stress as his had a miscarriage and is scheduled for procedure tomorrow. Denies hx GERD. Pt without known hx HTN, HLD or DM. Was former smokeless tobacco user. No known FH CAD. Denies diaphoresis, N/V/D/C, HOLLIS, dizziness, syncope, vision changes, orthopnea, palpitations, choking, otalgia, abdominal pain, paresthesias, weakness, extremity weakness, extremity edema, rashes, urinary symptoms. Admission Exam Per Admitting Provider General: no distress, WDWN, non-ill appearing Head: normocephalic, atraumatic Eyes: PERRL, EOM's intact, conjunctiva non-injected, anicteric ENT: normal inspection external ears, nose, mucous membranes moist Neck: supple, trachea midline, non-tender Lungs: clear, no respiratory distress, no wheezing/rhonchi/rales CV: RRR, no murmur, no JVD, no pretibial edema Abd: normal BS, soft, non-tender Ext: no cyanosis, no calf tenderness Neuro: A&O x 3, no focal deficits noted, normal affect Skin: warm, dry Principal Diagnosis STEMI HLD Pulm Nodule Obesity Discharge Exam ROS-No Headache, No Visual Changes, No Nausea, No Vomiting, No Fever, No Chills, No Neck Pain or Stiffness, No Chest Pain, No Palpitations, No SOB, No SIDDIQUI, No Cough, No Sputum, No Wheezing, No Abdominal Pain, No Diarrhea, No Hematemesis, No Hemoptysis, No Unexpected Weight Loss, No Flank pain, No Melena, No Hematochezia, No Frequency, No Urgency, No Burning, No Hematuria, No Rashes, No Diaphoresis. Appetite is Normal Physical Exam Gen-AAO x 3, NAD, Afebrile Head-NCAT, EOMI, PERRLA, Anicteric Sclera, No Posterior Pharyngeal Erythema Neck-Supple, No JVD, No Thyromegaly, No Masses, No LAD, No Bruits Lungs-Clear to Auscultation Bilaterally, No Rales, No Rhonchi, No Wheezing, No Crepitus Chest-No S4, +S1, +S2, No S3, No Murmurs, No Rubs, No Gallops, No Ectopy Abdomen-Soft, Bowel Sounds Present, Non Tender, Non Distended, No Hepatomegaly, No Splenomegaly, No Palpable Masses, No Rebound, No Rigidity, No Guarding Musculoskeletal-Full Range of Motion Bilaterally, No CVAT Extremities-No Cyanosis, No Clubbing, No Edema Nuero-Cranial Nerves II-XII grossly intact, Motor WNL, DTRs WNL, Strength WNL, Non Focal Psych-Normal Mood Discharge Data Allergies Allergy/AdvReac Type Severity Reaction Status Date / Time ibuprofen AdvReac Unknown NAUSEA Verified 01/13/19 15:23 Consultations 01/13/19 16:33 ED Decision to Admit Stat 01/13/19 18:25 Consult Cardiology Routine 01/14/19 08:00 Consult Cardiac Catheterization Routine 01/14/19 12:21 Consult Cardiac Rehabilitation Routine Procedures Performed Operation Date: 01/14/19 11:30 Actual Procedures p Cath, Left with Cors and Vent - Fernando Cobos MD s Cineradiography w/Routine Exam - Fernando Cobos MD s Drug Eluting Stent SGl Vessel - Fernando Cobos MD s IVUS Coronary Single Vessel - Fernando Cobos MD Ordered Studies 01/13/19 15:19 CT angio chest PE protocol Stat 01/14/19 08:51 CL Cath Imgs for PACS use only Routine 01/14/19 12:38 CL IVUS Coronary Single Vessel Routine Current Diagnoses Obesity, unspecified (01/14/19) Hyperlipidemia, unspecified (01/14/19) Non-ST elevation (NSTEMI) myocardial infarction (01/14/19) Chest pain, unspecified (01/14/19) Abnormal levels of other serum enzymes (01/14/19) Solitary pulmonary nodule (01/14/19) Allergies ibuprofen Adverse Reaction (Unknown, Verified 01/13/19 15:23) NAUSEA Height/Weight/Isolation Height 6 ft 1 in Weight 128.8 kg Chemistry 01/13/19 01/14/19 01/15/19 14:35 07:25 06:30 Sodium 141 141 140 Potassium 4.0 3.9 3.9 Chloride 108 H 110 H 109 H Carbon Dioxide 24 25 25 Anion Gap 9.0 6.0 6.0 BUN 15 11 12 Creatinine 0.90 0.95 0.94 Glucose 83 103 H 102 H Hospital Course (1) NSTEMI (non-ST elevated myocardial infarction): (2) Chest pain: (3) Elevated troponin: Pt presented to ER with c/o SOB and intermittent CP x 2 days. CP described as aching across upper chest and also reports low mid chest pain that radiates up to neck and some aching to mid back that radiates up his back. He reports past 2 days with hoarseness and SOB. No fever/chills, cough, sore throat or rhinorrhea. 1 week ago was turkey hunting and walked up hill and became SOB. In ER pt afebrile, P: 80, R: 20, BP: 143/95, 95% on RA Troponin: Laxmi and he ruled in for STEMI, [facility] 5/3 c PCI to A large RCA. CTA CHEST: There is no evidence of pulmonary embolus in the main, lobar, or se gmental pulmonary arteries. Mild cardiac enlargement. There is no airspace consolidation or pleural effusion. Mild diffuse peribronchial thickening suggests reactive airway disease. -In ER was given GI cocktail, pepcid, ASA 324mg, albuterol neb. Pt has current aching across upper chest and rates 2/10 on pain scale. Denies current SOB. (4) Obesity (BMI 30-39.9): (5) Pulmonary nodule: 6 mm pathologically indeterminant pulmonary nodule in the left upper lobe noted on CT Chest -out patient CT chest follow up 6-12 months Follow up c with Dr Cason for routine care and Dr Cobos/Juma PCI to RCA Brilinta, ASA, Statin, BBlocker on DC 38 y/o M without significant PMH presented to ER with c/o SOB and intermittent CP x 2 days. Pt states past 2 days with aching across upper chest and also reports low mid chest pain that radiates up to neck and some aching to mid back that radiates up his back. Current aching across upper chest and rates 2/10 on p ain scale. He reports past 2 days has hoarseness and SOB and he felt like he was getting bronchitis, however denies any cough, wheezing, fever/chills, rhinorrhea, sore throat, dysphagia. His had recent bronchitis. Pt states 1 week ago was turkey hunting and walked up hill and became SOB. Denies other exertional dyspnea or CP previously. Pt reports has been under recent stress as his had a miscarriage and is scheduled for procedure tomorrow. Denies hx GERD. Pt without known hx HTN, HLD or DM. Was former smokeless tobacco user. No known FH CAD. Denies diaphoresis, N/V/D/C, HLOLIS, dizziness, syncope, vision changes, orthopnea, palpitations, choking, otalgia, abdominal pain, paresthesias, weakness, extremity weakness, extremity edema, rashes, urinary symptoms. ROS-No Headache, No Visual Changes, No Nausea, No Vomiting, No Fever, No Chills, No Neck Pain or Stiffness, No Chest Pain, No Palpitations, No SOB, No SIDDIQUI, No Cough, No Sputum, No Wheezing, No Abdominal Pain, No Diarrhea, No Hematemesis, No Hemoptysis, No Unexpected Weight Loss, No Flank pain, No Melena, No Hematochezia, No Frequency, No Urgency, No Burning, No Hematuria, No Rashes, No Diaphoresis. Appetite is Normal, Feels Fine Physical Exam Gen-AAO x 3, NAD, Afebrile, obese Head-NCAT, EOMI, PERRLA, Anicteric Sclera, No Posterior Pharyngeal Erythema Neck-Supple, No JVD, No Thyromegaly, No Masses, No LAD, No Bruits Lungs-Clear to Auscultation Bilaterally, No Rales, No Rhonchi, No Wheezing, No Crepitus Chest-No S4, +S1, +S2, No S3, No Murmurs, No Rubs, No Gallops, No Ectopy Abdomen-Soft, Bowel Sounds Present, Non Tender, Non Distended, No Hepatomegaly, No Splenomegaly, No Palpable Masses, No Rebound, No Rigidity, No Guarding Musculoskeletal-Full Range of Motion Bilaterally, No CVAT Extremities-No Cyanosis, No Clubbing, No Edema Nuero-Cranial Nerves II-XII grossly intact, Motor WNL, DTRs WNL, Strength WNL, Non Focal Psych-Normal Mood (6) Dyslipidemia: Total Time Total Time Spent Total Time Spent (In Minutes): 40 mins Total Time Includes: Examination of the Patient, Discharge Planning, Medication Reconciliation and Communication With Other Providers Discharge Plan Discharge Items Patient Disposition: Home - Self-Care Reason For Visit: CHEST PAIN Discharge Diagnosis: STEMI HLD Obesity Pulm Nodule Condition: Good Discharge Goals: Improve function Activity: As commented below Activity Comment: As per Post Cath instructions Lifting: Wait until after follow-up appointment Bathing: No limitations Sexual Activity: Wait until after follow-up appointment Exercise/Sports: Wait until after follow-up appointment Driving/Machine Use: No limitations Weightbearing: Left weightbearing and Right weightbearing Non-emergency contact: Primary Care Provider and [employer]oc Operations Intelligence Officer Call non-emergency contact if: you have any medication questions, your symptoms worsen and your pain is not controlled Follow-up/Referrals: Fernando Cobos MD [Physician] - (1-2 weks or as directed) Vaibhav Dennison DO [[employer] Operations Intelligence Officer] - Phong Cason MD [Primary Care Provider] - (Call for first opening RITU) Diet: Heart Healthy Addtl Provider Instructions: Has a Pulm Nodule that needs a f/u CTC in 6 months follow up with cardiology 1-2 weeks or as directed Prescriptions: New atorvastatin 40 mg Tablet 80 mg PO QAM Qty: 30 RF: 0 aspirin [Ecotrin Low Strength] 81 mg Tablet,Delayed Release (Dr/Ec) 81 mg PO QAM Qty: 30 RF: 0 nitroglycerin [Nitrostat] 0.4 mg Tablet, Sublingual 0.4 mg sublingual UD PRN (Reason: chest pain) Qty: 30 RF: 0 metoprolol succinate 25 mg Tablet Extended Release 24 Hr 25 mg PO QAM Qty: 30 RF: 0 Brilinta 90 mg Tablet 90 mg PO BID Qty: 60 RF: 0 Discontinued Vicks DayQuil Cold-Flu Relief 5-10-325 mg Capsule 2 cap PO UD RF: 0 Stand-Alone Forms: My [facility], Work/School Release (Inpt) Discharge Orders: Discharge Order (Routine); Ordered 01/15/19 Ordered By: Micky Germain Admission Data Admit Date/Time: 01/14/19 06:49 Attending Provider: Micky Germain Admit Provider: Asif Rodrigues Primary Care Provider: Phong Cason Other Providers: Asif Rodrigues ; Vaibhav Dennison ; Fernando Cobos Service: Telemetry
== END 2019-01-15 10:58 | disposition home or self-care (01) | DRG 247 ==
LOC: 2S 14:06 → ED 14:06 → 2S 18:15

== ENCOUNTER 2020-05-02 10:03 | Inpatient (IN) ==
--- NOTE | 2020-04-04 08:23 | PAT Medication Instructions ---
Medication Instructions Date of Service April 04, 2020 Home Medications Medication Instructions Recorded aspirin [Ecotrin Low Strength] 81 mg PO QAM #30 tab 01/15/19 atorvastatin 80 mg PO QAM #30 tab 01/15/19 metoprolol succinate 25 mg PO QAM #30 tab 01/15/19 nitroglycerin [Nitrostat] 0.4 mg SUBLINGUAL UD PRN #30 tab 01/15/19 aspirin [Ecotrin Low Strength] 81 mg PO QAM atorvastatin 80 mg PO QAM metoprolol succinate 25 mg PO QAM nitroglycerin [Nitrostat] 0.4 mg SUBLINGUAL UD PRN Continue as directed nitroglycerin [Nitrostat] 0.4 mg SUBLINGUAL UD PRN (if needed) ASK your prescriber and surgeon aspirin [Ecotrin Low Strength] 81 mg PO QAM Take morning of surgery With a small sip of water, OTHERWISE NOTHING TO EAT OR DRINK AFTER MIDNIGHT: atorvastatin 80 mg PO QAM metoprolol succinate 25 mg PO QAM Other Notes If you have any questions please call us at [phone] or [phone] or [phone] or [phone]
--- NOTE | 2020-04-04 08:27 | Anesthesiology Consultation ---
Date of Service April 04, 2020 Assessment & Plan (1) Encounter for pre-operative examination: Per PAT assessment on 04/04: Travel screen negative. No known COVID-19 positive contacts. No current COVID-19 related symptoms. Surgeon arranging preop COVID testing. Awaiting results. - Cardiology note: 03/26/20: "As long as the patient is not experiencing any new cardiac symptoms such as exertional chest pain or shortness of breath, reminiscent of his angina a year ago, he is deemed stable from a cardiac perspective to proceed with orthopedic surgery as planned. In patients with history of intracoronary stents, standard cardiology recommendations are for patient to remain on aspirin 81 milligrams daily without interruption his discontinuing the aspirin can lead to acute stent thrombosis and heart attack." Patient denies any cardiopulmonary complaints at PAT visit 04/04/20. - ASA to be continued perioperatively per admissions clinician (per patient, surgeon's o ffice aware of cardiology ASA recommendations) Chart Review Chart Review: Acceptable Risk for Surgery (pending COVID testing) and Patient seen in Pre Admission Testing Teaching & Discussion Pre-Anesthesia Teaching/Discussion Notes: Instructed NPO after midnight before surgery,except medications with 15 cc of water. Medication instructions provided according to the PAT guidelines. History Surgery Operation Date: 05/02/20 11:40 Proposed Procedures p Right Knee Arthroscopy, Medial Meniscus Repair versus Debridement, High Tibial Osteotomy with Allograft, Chondroplasty - Twin Camejo MD Height/Weight Height: 6 ft 1 in Weight: 133.9 kg Allergies Allergy/AdvReac Type Severity Reaction Status Date / Time ibuprofen AdvReac Unknown CAN'T TAKE Verified 03/29/20 13:20 PER FLEECER Medications Home Medications Medication Instructions Recorded Confirmed Last Taken aspirin [Ecotrin Low Strength] 81 mg PO QAM #30 tab 01/15/19 03/29/20 Unknown atorvastatin 80 mg PO QAM #30 tab 01/15/19 03/29/20 Unknown metoprolol succinate 25 mg PO QAM #30 tab 01/15/19 03/29/20 Unknown nitroglycerin [Nitrostat] 0.4 mg SUBLINGUAL UD PRN #30 tab 01/15/19 03/29/20 Un known Past Medical History Medical History Anxiety Dyslipidemia History of heart attack stent x1 (01/2019) PTSD (post-traumatic stress disorder) Pulmonary nodule Exercise / Class Metabolic Activity II 4-5 Yardwork/Stairs/Walk up hill Past Family History Family History Father Diabetes Mother Cancer Denies family history of Sudden Past Surgical History Surgical History History of cardiac cath 01/2019 (stent x1) [place] teeth removed Past Anesthesia History No Hx of Anesthesia Complications and No Family Hx of Anesthesia Complications History of PONV No Hx of PONV and No Hx of Motion Sickness Social History Smoking Status: Never smoker Do You Dip or Chew Tobacco: No Hx Alcohol Use: Yes Alcohol type: beer alcohol intake frequency: a few times a month Hx Substance Use: No substance use type: does not use Review of Systems Patient denies chest pain, shortness of breath, dyspnea on exertion, fever, chills, cough, wheezing, palpitations. Physical Exam Vital Signs VITALS BP 123/80 P 72 TEMP 98.3 SP02 95%RA RESP 16 PHYSICAL Full neck and c-spine range of motion. Full TMJ range of motion. TMD 3.5 finger breaths Mallampati Score 3 (small oral opening) Dentition: missing molars Lungs: clear throughout to auscultation Cardiac: regular rate and rhythm, no murmurs noted Spine: normal Carotid arteries: negative bruit Extremities: no edema Thick neck Testing Laboratory Results 04/04/20 08:50 04/04/20 08:50 Electrocardiogram Date: 01/11/20 NSR at 84bpm. Echocardiogram Date: 01/14/19 EF 55-60%. No RWMA. No significant valvular disease. Stress Test Date: 01/11/20 Type: exercise Stress EKG/ECHO negative for inducible ischemia. LVEF 55-59%. 84% MPHR. 9.9 METS. Cardiac Catheterization Date: 01/14/19 Severe single vessel coronary artery disease-Subtotal, acute on chronic mid RCA occlusion with heavy thrombus burden and left to right collaterals. Normal intracardiac filling pressure. Successful PCI of mid RCA with single drug- eluting stent (4.0 x 28 m Xience Nancy; postdilated with 5.0 NC).
[2020-04-04 10:41] LABS: Basophils # (auto) 0.01 K/uL (0-0.2); Basophils % (auto) 0.1 %; Eosinophils # (auto) 0.07 K/uL (0-0.5); Hematocrit (blood only) 44.1 % (42-52); Hemoglobin 15.1 g/dL (14.0-18.0); Immature Granulocytes # (auto) 0.01 K/uL (0.00-0.02); Immature Granulocytes % (auto) 0.1 %; Lymphocytes % (auto) 32.5 %; Mean Corpuscular Hemoglobin 29.8 pg (25-34); Mean Corpuscular Hgb Conc 34.2 g/dL (32-36); Mean Corpuscular Volume 87.2 fL (80-100); Mean Platelet Volume 10.7 fL (7.4-10.4); Monocytes # (auto) 0.37 K/uL (0.11-0.59); Monocytes % (auto) 5.5 %; Neutrophils % (auto) 60.8 %; Platelet Count 236 K/uL (130-400); RDW Coefficient of Variation 14.1 % (11.5-14.5); Red Blood Count 5.06 M/uL (4.7-6.1); White Blood Count 6.76 K/uL (4.8-10.8)
[2020-04-04 10:54] LABS: BUN Creatinine Ratio 14.4 (10-20); Calcium 9.2 mg/dl (8.5-10.1); Creatinine Clr Calc Pharmacy 148.5 ml/min; Est GFR (African American) 116.3; Est GFR (Non-African American) 100.3; Potassium 4.5 mmol/L (3.5-5.1)
--- NOTE | 2020-04-04 15:34 | History & Physical Report ---
Date of Service April 04, 2020 Assessment & Plan (1) Unilateral primary osteoarthritis, right knee: PRE-OP Diagnosis: Right knee arthritis, medial meniscus tear Planned Procedure: Right knee arthroscopy; medial meniscus repair versus debridement; high tibial osteotomy with allograft; chondroplasty Plan: Patient is scheduled to undergo this procedure at the [facility] under 23-hour observation admission on May 02, [address] Twin Camejo. Risks and complications of the procedure such as: Infection, bleeding, pain, scarring, nerve blood vessel damage, weakness, wound problems, stiffness, incomplete relief of symptoms, hardware failure, malunion, nonunion, arthritis, blood clots, embolism, heart attack, stroke and were explained the patient and informed consent to perform this procedure was signed with Dr. Camejo present. Patient also understands the risks of proceeding with surgical intervention during the COVID-19 pandemic. Currently he is asymptomatic. Patient will be tested for COVID prior to the surgery. Patient will obtain preoperative medical clearance from his software tester Dr. Dennison. Patient states that he contacted Dr. Dennison office and they recommended that he continue his aspirin therapy and have cleared him for surgery, however we have not received this confirmation, but we will contact his office for confirmation. Patient met with anesthesia today at the hospital and has some additional testing performed. Patient was provided with a set of crutches at his visit today. He will bring them with him on the day of surgery. A prescription for oxycodone was sent to the patient's pharmacy during today's visit for postoperative pain control. PDMP was checked and no red flags were raised that would prevent us from prescribing this medication. Patient will use his daily aspirin for DVT prophylaxis, and will use [id number] extra strength Tylenol for pain control. Patient was not provided with a prescription for the diclofenac sodium because he stated that his software tester does not want him using any type of anti-inflammatory agents. Patient will be scheduled for his 2-week postoperative follow-up with myself on May 16, 2020 11:15 AM. He is scheduled to follow-up with physical therapy on postoperative day 2 May 04, 2020 at 10:30 AM. Patient states that if he has questions or concerns prior to her surgery date, he will contact clinic. History of Present Illness Chief Complaint: Chief Complaint: Right knee pain Primary Care Provider: Phong Cason MD History of Present Illness (including history relevant to procedure): This 40-year-old male presents clinic today for his preoperative history and physical examination. Patient complains of persistent right knee pain over the medial aspect since June 2019. Patient states that he was hiking with a heavy pack, twisted his knee and felt a popping sensation. Patient states that he has had 2 injections into the knee and attended physical therapy but has not had any alleviation of his pain. Patient states that he is not able to use nonsteroidal agents at the recommendation of his software tester but does use extra Tylenol for pain relief. He states that the pain is starting to affect his activities of daily living and is ready to proceed with surgical intervention. Past Medical History: Problems: Osteoarthritis of right knee Preop examination Neck pain Leg pain, left Knee pain, left Hamstring injury Leg sprain Pain in lower limb Hyperlipidemia Hypertension Myocardial infarction Sleep apnea with CPAP use Procedure History Procedure Procedure Date Comments [place] teeth extraction Stent [facility] 01/14/2019 - [facility] [place] Allergies and Sensitivities: NKA Family history: Noncontributory Social history: Patient states he consumes a few alcoholic beverages each month, however he denies tobacco or illicit drug use Current Home Meds: (Last Updated 04/04 12:15) (Tylenol 325 mg oral tablet) 975 mg PO q4h PRN: as needed for pain(aspirin 81 mg oral tablet) 81 mg PO Daily atorvastatin(Flexeril 10 mg oral tablet) 1 tab PO tid PRN: as needed for spasm(metoprolol succinate (ER))(oxyCODONE 5 mg oral tablet) take 1-2 tabs po q 4-6 hrs prn pain. Max of 6 tabs per day Allergies Allergy/AdvReac Type Severity Reaction Status Date / Time ibuprofen AdvReac Unknown CAN'T TAKE Verified 03/29/20 13:20 PER JR. SYSTEMS ADMINISTRATOR Home Medications Home Medications Medication Instructions Recorded Confirmed Type aspirin [Ecotrin Low Strength] 81 mg PO QAM #30 tab 01/15/19 03/29/20 Rx atorvastatin 80 mg PO QAM #30 tab 01/15/19 03/29/20 Rx metoprolol succinate 25 mg PO QAM #30 tab 01/15/19 03/29/20 Rx nitroglycerin [Nitrostat] 0.4 mg SUBLINGUAL UD PRN #30 tab 01/15/19 03/29/20 Rx Past Med/Surg History Medical History Anxiety Dyslipidemia History of heart attack stent x1 (01/2019) PTSD (post-traumatic stress disorder) Pulmonary nodule Surgical History History of cardiac cath 01/2019 (stent x1) [place] teeth removed Family History Father Diabetes Mother Cancer Denies family history of Sudden Social History Smoking Status: Never smoker Do You Dip or Chew Tobacco: No; Hx Alcohol Use: Yes Alcohol type: beer Hx Substance Use: No Preferred Language: Mauritanian Communication Ability: Effective Wood Heel Fitter Machine Required: No Beliefs That Will Affect Care: None Current Living Situation: Spouse Other Information That Helps Us Care for You: No Feels Safe at Home: Yes Review of Systems All systems reviewed & are unremarkable except as noted in HPI & below Physical Exam Physical Exam: Physical Exam: (relevant to the procedure, including heart and lung evaluation) General: Alert and oriented x3 with proper grooming and hygiene Eyes: Pupils are equal and react light with accommodation. Extraocular movements are intact Throat: Posterior oropharynx clear with absence of edema, erythema or exudate Cardiac: Regular rate and rhythm with no murmurs or gallops appreciated Lungs: Clear to auscultation throughout with no wheezing, rales or rhonchi Abdomen: Obese, nondistended, nontender with normal active bowel sounds Extremities: Varus alignment of R lower extremity. Minimal effusion. ROM 0 to 130. Severe Medial joint line tenderness. Ben's test refers pain to medial meniscus. Stable Collaterals at 0 and 30 flexion. Stable Posterior Drawer and Grade 1 Reese Muscle strength - Quads and Hams 5/5. Intact distal neurology Neuro: Cranial nerves II through XII are intact no motor or sensory deficit Skin: Normal appearance no open skin areas or discharge Results & Data Laboratory Results 04/04/20 04/04/20 Range/Units 08:50 08:50 WBC 6.76 (4.8-10.8) K/uL RBC 5.06 (4.7-6.1) M/uL Hgb 15.1 (14.0-18.0) g/dL Hct 44.1 (42-52) % MCV 87.2 (80-100) fL MCH 29.8 (25-34) pg MCHC 34.2 (32-36) g/dL RDW Std Deviation 45.0 (36.4-46.3) fL RDW Coeff of Kerri 14.1 (11.5-14.5) % Plt Count 236 (130-400) K/uL MPV 10.7 H (7.4-10.4) fL Immature Gran % (Auto) 0.1 % Neut % (Auto) 60.8 % Lymph % (Auto) 32.5 % Baxter % (Auto) 5.5 % Eos % (Auto) 1.0 % Baso % (Auto) 0.1 % Neut # (Auto) 4.10 (1.4-6.5) K/uL Lymph # (Auto) 2.20 (1.2-3.4) K/uL Baxter # (Auto) 0.37 (0.11-0.59) K/uL Eos # (Auto) 0.07 (0-0.5) K/uL Baso # (Auto) 0.01 (0-0.2) K/uL Immature Gran # (Auto) 0.01 (0.00-0.02) K/uL Sodium 142 (136-145) mmol/L Potassium 4.5 (3.5-5.1) mmol/L Chloride 108 H (98-107) mmol/L Carbon Dioxide 27 (21-32) mmol/L Anion Gap 7.0 (3-11) BUN 14 (7-18) mg/dl Creatinine 0.94 (0.6-1.4) mg/dl Est Cr Clr Drug Dosing 148.5 ml/min Est GFR ( Amer) 116.3 Est GFR (Non-Af Amer) 100.3 BUN/Creatinine Ratio 14.4 (10-20) Glucose 86 (70-99) mg/dl Calcium 9.2 (8.5-10.1) mg/dl Diagnostic Findings Studies (relevant to the procedure): MRI that was done on March 13, 2020 shows moderate osteoarthritis in the medial compartment with severe chondral thinning. He has some reactive bone marrow edema in the medial aspect and medial proximal tibia. He has a tear of the posterior root of the medial meniscus. Also the radiologist reads an articular surface tear of the anterior horn of the lateral meniscus. X-rays shows him to be in pathologic varus malalignment with medial joint space narrowing.
[~2020-05-02 10:03] MED LIST changes: +BUPIVACAINE 0.5 % 5 MG/1 ML PF 10ML VIAL ONE; +CEFAZOLIN 3000MG 72.5 ML IV SCH; +LACTATED RINGER'S 1,000 ML IV SCH; +LR 15ML/HR IV SCH; -OPTIRAY 320 IV PRN
[2020-05-02] MEDS ORDERED: ROPIVACAINE 0.5% 5 MG/ML 30 ML VIAL ONE (10:20)
--- NOTE | 2020-05-02 11:47 | History & Physical Bridge Note ---
Date of Service May 02, 2020 History & Physical Bridge Note I have examined the patient, reviewed the History & Physical and in the interval since the performance of the History & Physical I have noted the following changes of clinical significance: no changes noted
[2020-05-02] MEDS ORDERED: ePHEDrine sulfate 50 MG/ML AMP IV PRN (11:54)
[2020-05-02] MEDS ORDERED: ONDANSETRON INJ 2 MG/ML 2 ML VIAL IV PRN ×2 (11:54→16:01)
[2020-05-02] MEDS ORDERED: ATROPINE SULFATE 0.1 MG/ML 10ML SYR IV PRN (11:54)
[2020-05-02] MEDS ORDERED: MIDAZOLAM HCL 1 MG/ML 2ML VIAL ONE (11:57)
[2020-05-02] MEDS ORDERED: fentaNYL citrate 100 MCG/2 ML VIAL ONE ×3 (11:57→14:09)
[2020-05-02] MEDS ORDERED: LIDOCAINE/EPINEPHRINE 1% 20 ML VIAL ONE (12:58)
[2020-05-02] MEDS ORDERED: EpINEphrine HCL INJ 1 MG/ML 1ML SYRINGE ONE (13:00)
[2020-05-02] MEDS ORDERED: PROPOFOL IV EMULSION 10 MG/ML 20 ML VIAL IV ONE (14:02)
[2020-05-02] MEDS ORDERED: ONDANSETRON INJ 2 MG/ML 2 ML VIAL ONE (14:02)
[2020-05-02] MEDS ORDERED: LIDOCAINE HCL 2% 2 ML VIAL/AMP(20MG/ML) INFIL ONE (14:02)
[2020-05-02] MEDS ORDERED: NEOSTIGMINE METHYLSULFATE 5 MG/5 ML SYR ONE (14:31)
[2020-05-02] MEDS ORDERED: GLYCOPYRROLATE 0.2 MG/ML VIAL ONE (14:31)
[2020-05-02] MEDS ORDERED: HYDROmorphone INJ 2 MG/ML SYR/VIAL ONE (14:31)
[2020-05-02] MEDS ORDERED: ROPIVACAINE 0.5% 5 MG/ML 30 ML VIAL INFIL ONE (14:37)
[2020-05-02] MEDS ORDERED: ROCURONIUM BROMIDE 10 MG/ML 5 ML VIAL IV ONE (14:46)
[2020-05-02] MEDS ORDERED: DexMEDEtomidine HCL IV 100 MCG/ML VIAL ONE (14:46)
[2020-05-02] MEDS ORDERED: SUCCINYLCHOLINE CHLORIDE 20 MG/ML 10 ML VIAL IV ONE (14:46)
[2020-05-02] MEDS ORDERED: PHENYLEPHRINE 100MCG/ML 5ML SYR ONE (15:34)
--- NOTE | 2020-05-02 15:38 | Fluoroscopy Report ---
FL knee RT 1 or 2V CLINICAL HISTORY: RT HIGH TIBIAL OSTEOTOMY/CHONDROPLASTY COMPARISON STUDY: FLUOROSCOPY TIME: 136 seconds. NUMBER OF FLUOROSCOPIC IMAGES: 7 FINDINGS: Intraoperative fluoroscopic spot images reveal postsurgical changes of a proximal tibial os teotomy and reported chondroplasty. The osteotomy site is fixated with a medial metallic plate and mu ltiple screws. IMPRESSION: Intraoperative fluoroscopic spot images obtained during a proximal tibial osteotomy and chondroplasty. ACT 112: Negative or not required by law. Electronically signed by: Crow Donohue M.D. 05/02/2020 3:37 PM
[2020-05-02] MEDS ORDERED: ALUMINUM/MAGNESIUM SUSP 30 ML UDC PO PRN (16:01)
[2020-05-02] MEDS ORDERED: bisacodyL 10 MG SUPP PR PRN (16:01)
[2020-05-02] MEDS ORDERED: DiphenhydrAMINE HCL 50 MG/ML VIAL IV PRN (16:01)
[2020-05-02] MEDS ORDERED: HYDROmorphone INJ 0.5 MG/0.5 ML SYR IV PRN (16:01)
[2020-05-02] MEDS ORDERED: NALOXONE HCL 0.4 MG/1 ML VIAL/CARP IV PRN (16:01)
[2020-05-02] MEDS ORDERED: MAGNESIUM HYDROXIDE SUSP 30 ML UDC PO PRN (16:01)
[2020-05-02] MEDS ORDERED: TAMSULOSIN HCL 0.4 MG CAP PO PRN (16:01)
[2020-05-02] MEDS ORDERED: METOCLOPRAMIDE HCL INJ 5 MG/ML 2 ML VIAL IV PRN (16:01)
--- NOTE | 2020-05-02 16:01 | Operative Report ---
Post Operative Report Pre & Post Diagnosis Operation Date: 05/02/20 11:50 Pre-Op Diagnosis: Right Knee: Osteoarthritis and Medial Meniscus Tear Post-Op Diagnosis: Right Knee: Osteoarthritis and Medial Meniscus Tear I identified the patient and participated in the time-out.: Yes Procedure Operation Date: 05/02/20 11:50 Actual Procedures p Right Knee: Arthroscopy, Medial Meniscus Repair, High Tibial Osteotomy with Allograft, Chondroplasty(Right) - Twin Camejo MD Surgeon Twin Camejo MD Electrical Designer Nadia Cote MD; BENEDICT Martinez PA-C; Aly Britton MS3 Estimated Blood Loss 25 Findings Consistent with Post-Op Diagnosis Specimens none Complications none Disposition Accompanied Patient To Recovery: Yes Disposition: Recovery Room Description of Procedure I was present during the entire case assisting with positioning, retraction, wound closure, dressing and brace application. Fellow was present and I served as an extra set of hands. Please see Dr. Camejo procedure note for specifics of the case. I attest to the content of the Intraoperative Record and any orders documented therein. Any exceptions are noted below.
[2020-05-02] MEDS ORDERED: NITROGLYCERIN SL 0.4 MG/TAB TAB SL PRN (16:06)
--- NOTE | 2020-05-02 16:06 | Post Operative Brief Note ---
Immediate Post Op Note v1 Date of Surgery May 02, 2020 Pre & Post Diagnosis Operation Date: 05/02/20 11:50 Pre-Op Diagnosis: Right Knee: Osteoarthritis and Medial Meniscus Tear Post-Op Diagnosis: Right Knee: Osteoarthritis and Medial Meniscus Tear I identified the patient and participated in the time-out.: Yes Procedure Operation Date: 05/02/20 11:50 Actual Procedures p Right Knee: Arthroscopy, Medial Meniscus Repair, High Tibial Osteotomy with Allograft, Chondroplasty(Right) - Twin Camejo MD Surgeon Twin Camejo MD Pipe Maker Nadia Cote MD; BENEDICT Martinez PA-C; Aly Aquino MS3 Estimated Blood Loss 25 Findings Consistent with Post-Op Diagnosis Anesthesia Type General Regional Complications none Disposition Accompanied Patient To Recovery: No Disposition: Recovery Room
[2020-05-02] MEDS: fentaNYL citrate 100 MCG/2 ML VIAL IV PRN ×4 (16:25→16:40)
--- NOTE | 2020-05-02 16:28 | XRay Report ---
XR knee RT 1 or 2V routine HISTORY: 40 years-old Male Surgical Post Op COMPARISON: Knee radiographs 03/06/2020 TECHNIQUE: 2 radiographic views of the right knee FINDINGS: Osteotomy changes involve the proximal tibia. Medial plate and screw fixation. Satisfactory alignment . Mild medial and patellofemoral compartment osteoarthritis. Anterior midline skin naomie are noted along with expected post surgical soft tissue swelling and deep tissue air. IMPRESSION: Osteotomy changes of the right knee with expected postoperative findings. ACT 112: Negative or not required by law. The above report was generated using voice recognition software. It may contain grammatical, syntax o r spelling errors. Electronically signed by: Kamari Salcedo M.D. 05/02/2020 4:26 PM
--- NOTE | 2020-05-02 17:00 | Operative Report ---
Post Operative Report Pre & Post Diagnosis Operation Date: 05/02/20 11:50 Pre-Op Diagnosis: Right Knee: Osteoarthritis and Medial Meniscus Tear Post-Op Diagnosis: Right Knee: Osteoarthritis and Medial Meniscus Tear I identified the patient and participated in the time-out.: Yes Procedure Operation Date: 05/02/20 11:50 Actual Procedures p Right Knee: Arthroscopy, Medial Meniscus Repair, High Tibial Osteotomy with Allograft, Chondroplasty(Right) - Twin Camejo MD Surgeon Twin Camejo MD Saloon Keeper Nadia Cote MD; BENEDICT Martinez PA-C; Aly Aquino MS3 Estimated Blood Loss 25 Findings Consistent with Post-Op Diagnosis Specimens none Anesthesia Type General Complications none Disposition Accompanied Patient To Recovery: Yes Description of Procedure as per dr Camejo note, I have been in the surgery from the beginning till he end, participated in instrument handling and wound closure I attest to the content of the Intraoperative Record and any orders documented therein. Any exceptions are noted below.
--- NOTE | 2020-05-02 17:05 | Anesthesiology Progress Note ---
Date of Service May 02, 2020 Anesthesia Post Procedure Vital Signs Vital Signs: Temp Pulse Pulse Resp BP BP Pulse Ox 05/02/20 16:50 97.9 F 70 20 153/76 H 93 05/02/20 16:40 92 H 20 163/87 H 94 05/02/20 16:30 77 16 155/83 H 94 05/02/20 16:20 88 18 122/67 93 05/02/20 16:10 74 15 128/70 92 05/02/20 16:00 97.3 F L 75 16 129/69 92 05/02/20 12:02 109 H 20 142/97 H 96 05/02/20 10:49 98.6 F 99 H 17 167/91 H 96 Pain Intensity Right Knee: Pain Intensity: 5 Transfer of Care Handoff Completed per policy Notes Mental Status: alert / awake / arousable and participated in evaluation Patient Amnestic to Procedure: Yes Nausea / Vomiting: adequately controlled Pain: adequately controlled Airway Patency, RR, SpO2: stable & adequate BP & HR: stable & adequate Hydration State: stable & adequate Anesthetic Complications: no major complications apparent and Pt Satisfied with anesthetic care
[2020-05-02] MEDS: OXYCODONE HCL IR 5 MG TAB (IMMEDIATE RELEASE) PO PRN ×2 (17:55→21:54)
[2020-05-02] MEDS: SODIUM CHLORIDE 0.9% 1000ML 1,000 ML IV SCH (17:55)
[2020-05-02] MEDS: CEFAZOLIN 2000MG 2,000 MG/15 ML SYR IV SCH (20:21)
[2020-05-02] MEDS: DOCUSATE SODIUM 100 MG CAP PO SCH (20:21)
--- NOTE | 2020-05-02 20:27 | Operative Report (OR) ---
DATE OF OPERATION: 05/02/2020 PREOPERATIVE DIAGNOSES: Right knee medial meniscus root tear, medial compartment osteoarthritis, and genu varum of the right knee. POSTOPERATIVE DIAGNOSES: Right knee medial meniscus root tear, medial compartment osteoarthritis, and genu varum of the right knee. OPERATIONS PERFORMED: 1. Right knee arthroscopic medial meniscus root repair. 2. Right knee arthroscopic chondroplasty of the medial femoral condyle. 3. Right knee opening wedge high tibial osteotomy with allograft. SURGEON: Twin Camejo MD. FEED MIXER HELPER SURGEON: Nadia Cote MD, Gutierrez Martinez PA-C, and Aly Aquino MS3. SPECIMENS: None. COMPLICATIONS: None. IMPLANTS: 1. Two [employer] Fast-Fix 360 all-inside suturing devices. 2. One Arthrex ContourLock proximal tibial osteotomy plate with a 9 mm wedge and A/P slope. 3. Three 6.5 mm cancellous screws and three 4.5 mm cortical screws. 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 Physical examination demonstrates tenderness to palpation along the medial joint line. Ben's test is positive. 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 The patient desires to remain active. I had a long discussion with him about treatment options including continued conservative management until he is old enough to be a candidate for a knee replacement versus high tibial osteotomy and a meniscal root repair. After reviewing all the risks and benefits of surgery, he elected to proceed. All questions were answered. Informed consent was signed. OPERATIVE FINDINGS: Diagnostic arthroscopy revealed the below findings: 1. The undersurface of the patella showed a grade 1 chondromalacia. 2. The trochlea showed grade 2 chondromalacia with a small fissure. 3. The suprapatellar pouch, medial and lateral gutters were free of any loose bodies. 4. The medial compartment showed a small osteophyte along the medial margin of the medial femoral condyle. There was diffuse grade 3 chondromalacia of the weightbearing portion of the medial femoral condyle. The medial meniscus showed a radial tear through the posterior root. The medial tibial plateau showed a grade 3 chondromalacia diffusely with a small area of grade 4 chondromalacia measuring approximately 5 mm x 3 mm. 5. The notch showed the ACL and the PCL to be intact. 6. Lateral compartment showed a small amount of fraying at the posterior root of the lateral meniscus. There was grade 1 chondromalacia of the lateral tibial plateau, and the lateral femoral condyle was normal. 7. A gentle chondroplasty was performed of the medial femoral condyle. The medial meniscus root tear was repaired using a [id number] suturing technique with all-inside suturing device. The fraying at the posterior root of the lateral meniscus was gently debrided. We then performed a opening wedge high tibial osteotomy using the Arthrex ContourLock plate. A femoral head allograft wedges were cut and tamped into the osteotomy site. DESCRIPTION OF THE OPERATION: The patient was identified in the preoperative holding area where his surgical site was marked. He was given an adductor canal block by anesthesia and brought back to the main operating room where he was placed on the operating table and general anesthesia was administered. A bump was placed underneath the ipsilateral operative hip. All bony prominences were padded. Perioperative antibiotics were administered. He was prepped and draped in normal sterile fashion. Prior to incision, a multidisciplinary timeout was called. All in the room were in agreement. We began by inspecting his overall clinical alignment, so we could compare this after we had done his opening wedge osteotomy. We then injected his arthroscopic portal sites with a total of 10 mL of 1% lidocaine without epinephrine. The anterolateral arthroscopic portal was created and the arthroscope was introduced into the suprapatellar pouch. An anterior medial portal was created under direct visualization. A diagnostic arthroscopy was then performed revealing the above findings. Once our diagnostic arthroscopy was complete, the arthroscopic shaver was used to perform a gentle chondroplasty of the medial femoral condyle. This improved our visualization of the posterior root tear of the medial meniscus. We then opened up the meniscal rasp and used this to rasp the meniscus tear as well as the synovium above and below the meniscal root to facilitate healing. We then opened up a Fast-Fix 360 all-inside suturing device. This was set at 14 mm depth so as to avoid the neurovascular bundle. We then placed our first horizontal mattress suture through the meniscus and reduced the meniscus back to the origin of the root attachment and then punctured through the capsule. The anchor was deployed and then the second anchor point was placed into the meniscal root tissue. The suture was tightened down. Excellent fixation was obtained. A second [id number] suture was then placed for additional fixation. Again, excellent fixation was obtained. Next, the small area of fraying at the posterior root of the lateral meniscus was gently debrided, taking care to not damage the intact fibers of the root attachment. We then removed the arthroscopic instruments from the knee as well as all the irrigation fluid. We then proceeded to perform a high tibial osteotomy. An 8 cm long incision was made midway between the anterior tibial crest and the posterior medial angle of the tibia. This started at the level of the joint line and extended distally. We dissected down through subcutaneous tissues to the level of the fascia. Full thickness flaps were raised above the fascia. A small incision was made just medial to the patellar tendon and a Jareth retractor was placed to identify the insertion of the patellar tendon down to the tibial tubercle. We then released the pes anserine and sartorial fascia attachment on to the anterior crest of the tibia and reflected this posteriorly. We then incised along the posterior medial corner of the tibia and then dissected subperiosteally along the posterior cortex of the tibia all the way towards the fibular head using a Butterfield elevator. This was then replaced with a Hohmann retractor. Fluoroscopy was brought in and we verified the appropriate position of the Hohmann retractor. We then placed our 2 guidewires under fluoroscopic guidance. Once the 2 guidewires were in position, we then incised through the MCL and the periosteum just below the wires. The osteotomy was then made while protecting the neurovascular bundle using an oscillating saw going only cutting through the medial cortex of the tibia. We then completed the osteotomy using osteotomes. The osteotomy did propagate to the lateral cortex. We then gently distract the osteotomy using the sagar. We then placed the graduated wedges in the osteotomy site. We distracted him to about 9 mm, which was our preoperative template. The alignment deneen, which we had used previously to check his alignment was then used to check the weightbearing axis. This showed the weightbearing axis, which had previously been through the medial compartment, now to be between the tibial spines. Clinically, we inspected him and he was in just slight valgus alignment. Therefore, I elected to use a 9 mm Arthrex A/P sloped ContourLock plate. This was opened up on the back table and was situated down into the osteotomy site. The plate was optimized on fluoroscopy and we then placed a single 6.5 mm cancellous screw proximally and a single 4.5 mm cortical screw distally, which helped to bring the plate towards the bone. There was a slight step off due to the plate contour. This was within acceptable limits, however. We then brought the knee into full extension, so as to not create any excessive posterior slope through the osteotomy. This was checked with the ruler, which we were very happy with. We then placed a second screw proximal to the osteotomy, 6.5 mm cancellous screw and a second screw distally to lock in the rotation of the plate. Our final 2 screws were then placed without difficulty. We tightened down all the screws and then obtained our fluoroscopic images, which we were very happy with our screw lengths. We then opened up the femoral head allograft, which had been thawed on the back table. We cut a 9 mm wedge and with a cortical bone on the wide part of the wedge. This was cut in half, so we could put 1 wedge behind the metal tooth and a second metal wedge in front of the metal tooth. We checked this under fluoroscopy and we were very happy with the position of the bone graft. At this point, our final fluoroscopic images were obtained. The wounds were irrigated with copious amounts of normal saline. The tourniquet was let down at 120 minutes. Meticulous hemostasis was ensured. We checked his pulse, which was intact. The pes was sutured to the underlying MCL. The deep dermal layer was closed with interrupted 2-0 Vicryl sutures. The skin and arthroscopic portals were closed with naomie. Sterile dressings were applied. He was then placed in a hinged knee brace locked in full extension. He was awoken from anesthesia and transferred to the recovery room in stable condition. POSTOPERATIVE COURSE: The patient will be admitted overnight for pain control and monitoring. He will be nonweightbearing for the next 6 weeks. He will be allowed to begin range of motion exercises 2-3 days after surgery. His range of motion will be blocked at less than 90 degrees for the first 6 weeks to protect the meniscal root repair. Xarelto for DVT prophylaxis. I attest to the content of the Intraoperative Record and any orders documented therein. Any exception s are noted below.
[2020-05-02] MEDS ORDERED: SENNA 8.6 MG TAB PO SCH (21:00)
[2020-05-02] MEDS: ACETAMINOPHEN 500 MG TAB PO SCH (21:54)
[2020-05-03] MEDS: OXYCODONE HCL IR 5 MG TAB (IMMEDIATE RELEASE) PO PRN ×3 (02:08→10:05)
[2020-05-03] MEDS: CEFAZOLIN 2000MG 2,000 MG/15 ML SYR IV SCH (03:33)
[2020-05-03] MEDS: SODIUM CHLORIDE 0.9% 1000ML 1,000 ML IV SCH (04:39)
[2020-05-03] MEDS: ACETAMINOPHEN 500 MG TAB PO SCH ×2 (06:09→12:46)
[2020-05-03 06:53] LABS: Hematocrit (blood only) 39.5 % (42-52); Hemoglobin 13.4 g/dL (14.0-18.0); Mean Corpuscular Hgb Conc 33.9 g/dL (32-36); Mean Corpuscular Volume 88.4 fL (80-100); Mean Platelet Volume 9.5 fL (7.4-10.4); Platelet Count 224 K/uL (130-400); RDW Standard Deviation 45.9 fL (36.4-46.3); Red Blood Count 4.47 M/uL (4.7-6.1)
[2020-05-03 07:27] LABS: BUN Creatinine Ratio 9.5 (10-20); Calcium 8.9 mg/dl (8.5-10.1); Est GFR (African American) 104.1; Est GFR (Non-African American) 89.8; Potassium 3.6 mmol/L (3.5-5.1)
[2020-05-03] MEDS ORDERED: dexAMETHasone 4 MG TAB PO SCH (08:00)
[2020-05-03] MEDS ORDERED: METOPROLOL SUCC 25MG EXT REL TAB PO SCH (09:00)
[2020-05-03] MEDS ORDERED: RIVAROXABAN 10 MG TABLET PO SCH (09:00)
[2020-05-03] MEDS ORDERED: ATORVASTATIN 40 MG TAB PO SCH (09:00)
[2020-05-03] MEDS ORDERED: ASPIRIN 81 MG ECTAB PO SCH (09:00)
[2020-05-03] MEDS ORDERED: MULTIVITAMIN TAB PO SCH (09:00)
[2020-05-03] MEDS: DOCUSATE SODIUM 100 MG CAP PO SCH (09:07)
--- NOTE | 2020-05-03 09:47 | Orthopedic Progress Note ---
Date of Service May 03, 2020 Assessment & Plan (1) Status post osteotomy: NWB RLE for 6 weeks. Hinged knee brace locked in extension for 5 days before beginning ROM, limited 0-90. PT/OT this AM D/C home when passes PT Xarelto for DVT prophylaxis Present on Admission?: Yes Admission and Anticipated Discharge Date Admission Date: May 02, 2020 Subjective Patient had difficulty getting comfortable and sleeping last night due to pain, but says the oxycodone are helping and he did not require any IV narcotics. No fevers/chills. He says his whole leg feels a little numb still. Physical Exam Physical Exam: Gen: alert and oriented x3, appears reasonably comfortable. R leg: brace locked in extension, dressing c/d/i. Fires EHL, FHL, EDL, FDL, tibant, gastrocsoleus. Decreased sensation to light touch entire foot, but can feel. Toes w/wp. Results & Data ([facility]) Vital Signs (Past 12 Hours) Vital Signs Temp Pulse Resp BP Pulse Ox 05/03/20 09:10 83 150/78 H 05/03/20 07:22 36.6 C 61 16 152/68 H 93 05/03/20 03:34 37.0 C 67 14 137/67 91 05/02/20 23:16 37.0 C 70 14 143/70 H 94 Diagnostic Findings Post-op x-rays show screws to be of appropriate length. Osteotomy exits lateral cortex below the joint line.
--- NOTE | 2020-05-03 09:53 | Discharge Summary ---
Date of Service May 03, 2020 Admission HPI Per Admitting Provider History of Present Illness (including history relevant to procedure): This 40-year-old male presents clinic today for his preoperative history and physical examination. Patient complains of persistent right knee pain over the medial aspect since June 2019. Patient states that he was hiking with a heavy pack, twisted his knee and felt a popping sensation. Patient states that he has had 2 injections into the knee and attended physical therapy but has not had any alleviation of his pain. 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 He states that the pain is starting to affect his activities of daily living and is ready to proceed with surgical intervention. Past Medical History: Problems: Osteoarthritis of right knee Preop examination Neck pain Leg pain, left Knee pain, left Hamstring injury Leg sprain Pain in lower limb Hyperlipidemia Hypertension Myocardial infarction Sleep apnea with CPAP use Procedure History Procedure Procedure Date Comments Iselin teeth extraction Stent [facility] 01/14/2019 - [facility] Allergies and Sensitivities: NKA Family history: Noncontributory Social history: Patient states he consumes a few alcoholic beverages each month, however he denies tobacco or illicit drug use Current Home Meds: (Last Updated 04/04 12:15) (Tylenol 325 mg oral tablet) 975 mg PO q4h PRN: as needed for pain(aspirin 81 mg oral tablet) 81 mg PO Daily atorvastatin(Flexeril 10 mg oral tablet) 1 tab PO tid PRN: as needed for spasm(metoprolol succinate (ER))(oxyCODONE 5 mg oral tablet) take 1-2 tabs po q 4-6 hrs prn pain. Max of 6 tabs per day Admission Exam Per Admitting Provider Physical Exam: (relevant to the procedure, including heart and lung evaluation) General: Alert and oriented x3 with proper grooming and hygiene Eyes: Pupils are equal and react light with accommodation. Extraocular movements are intact Throat: Posterior oropharynx clear with absence of edema, erythema or exudate Cardiac: Regular rate and rhythm with no murmurs or gallops appreciated Lungs: Clear to auscultation throughout with no wheezing, rales or rhonchi Abdomen: Obese, nondistended, nontender with normal active bowel sounds Extremities: Varus alignment of R lower extremity. Minimal effusion. ROM 0 to 130. Severe Medial joint line tenderness. Ben's test refers pain to medial meniscus. Stable Collaterals at 0 and 30 flexion. Stable Posterior Drawer and Grade 1 Reese Muscle strength - Quads and Hams 5/5. Intact distal neurology Neuro: Cranial nerves II through XII are intact no motor or sensory deficit Skin: Normal appearance no open skin areas or discharge Principal Diagnosis Right knee osteoarthritis; medial meniscus root tear Discharge Exam Gen: alert and oriented x3, appears reasonably comfortable. R leg: brace locked in extension, dressing c/d/i. Fires EHL, FHL, EDL, FDL, tibant, gastrocsoleus. Decreased sensation to light touch entire foot, but can feel. Toes w/wp. Discharge Data Allergies Allergy/AdvReac Type Severity Reaction Status Date / Time ibuprofen AdvReac Unknown CAN'T TAKE Verified 05/02/20 10:38 PER [employer] Procedures Performed Operation Date: 05/02/20 11:50 Actual Procedures p Right Knee: Arthroscopy, Medial Meniscus Repair, High Tibial Osteotomy with Allograft, Chondroplasty(Right) - Twin Camejo MD Ordered Studies 05/02/20 11:50 FL fluoroscopy <1hr Routine FL knee RT 1 or 2V Routine 05/02/20 12:33 US - OR guided needle placemen Routine Hospital Course (1) Status post osteotomy: Patient had a considerable amount of pain last night and had a difficult time sleeping. States that pain was tolerable after taking oral Oxycodone and he did not require IV analgesics. He will be discharged today and we will see him in outpatient PT tomorrow. NWB RLE for 6 weeks. Hinged knee brace locked in extension for 5 days before beginning ROM, limited 0-90. PT/OT this AM D/C home when passes PT Xarelto for DVT prophylaxis Total Time Total Time Spent Total Time Spent (In Minutes): 15 mins Total Time Includes: Examination of the Patient, Discharge Planning and Medication Reconciliation Discharge Plan Discharge Items Patient Disposition: Home - Self-Care Reason For Visit: Right Knee Arthritis, Medial Meniscus Tear Discharge Diagnosis: Right knee arthritis; medial meniscus tear Activity: As commented below Lifting: None Bathing: Keep incision dry Bathing Comment: may shower tomorrow Sexual Activity: Wait until after follow-up appointment Exercise/Sports: Wait until after follow-up appointment Driving/Machine Use: No driving until cleared by appeals specialist Weightbearing: Right non-weightbearing Weightbearing Comment: with brace locked in extension with aid of crutches Non-emergency contact: Primary Care Provider Call non-emergency contact if: you have any medication questions, your pain is not controlled, your temperature is above 101.5, your wound has increased drainage and your wound pain has increased Follow-up/Referrals: Phong Cason MD [Primary Care Provider] - Diet: Regular Addtl Attending Provider Instructions: Post-operative Instructions Dear Patient and Family/Friends, Before you are discharged from the hospital, it is important to know what to expect when you get home after surgery. To that end, we have created this sheet of discharge instructions which covers many commonly asked questions. Make sure you go through this sheet in its entirety with your nurse before you are discharged. Please note that we will go over the specifics of your surgery and recovery when you return for your first post-operative visit. Sincerely, Dr. Camejo Medications 1. Oxycodone 5 mg: take 1-2 tabs orally every 4-6 hrs as needed for pain postoperatively. A prescription will be sent to your pharmacy 2. Xarelto 10 mg: take 1 tab daily for 3 wks postoperatively for blood clot prevention. A prescription will be sent to your pharmacy 3. Extra Strength Tylenol 500 mg: take 2 tabs every 6-8 hours as needed for pain relief. Please purchase this medication. Pain Expect to be in a fair amount of pain after surgery. Remember, our goal is not to eliminate your pain, but to make it tolerable. It is a good idea to stay ahead of your pain by taking the medications you were prescribed once you get home. Typically, the pain starts improving 3-7 days after surgery. You should start weaning off the narcotic pain medication (oxycodone, hydrocodone, hydromorphone, morphine) as soon as your pain improves. Please call our office if your pain is not adequately controlled. Ice Ice your operative site at least 5 times a day for 15-30 minutes at a time. Make sure you have a thin cloth between the ice or cooling unit and your skin to prevent de la paz bite. This is especially important if you received a nerve block. Continue icing your operative site for the first 5-7 days after surgery, then as needed. Diet/Nausea/Vomiting Start by drinking clear liquids and eating crackers. If you can tolerate this, then you may resume your normal diet. If you feel nauseated or vomit, take Zofran/ondansetron (if prescribed). Please call our office if you have intra ctable nausea or vomiting, or, if after hours, you may go to the Emergency Room for help. Constipation Constipation is a common side effect of narcotic pain medication. If you have not had a bowel movement within 2 days after surgery, we recommend purchasing an over the counter laxative such as Milk of Magnesia, Dulcolax, or Miralax from a local pharmacy, and taking it as instructed. Call our clinic if any questions. Slings and Braces If you were placed in a sling or brace, it must be worn at all times, including sleep. You may remove your sling or brace for physical therapy, home exercises, and showering. The length of time you will be in your brace and range of motion restrictions depends on what surgery you had; these details will be reviewed at your first post-operative appointment. Nerve block The anesthesia team sometimes places a nerve block to help with post-operative pain control. This results in significant numbness and inability to move the extremity. The nerve block usually wears off in 8-12 hours, but sometimes can last up to 24 hours. Please call our office if you are still unable to move your extremity after 24 hours, unless you received a pain pump to take home. Nerve blocks typically wear off quickly, so start taking pain medication as soon as you start feeling soreness near your surgical site. Weight bearing and Range of Motion. Do not bear any weight through your operative extremity immediately after surgery. If you had upper extremity surgery, do not lift anything with that arm. If you are in a knee brace, keep it locked in place until your follow-up. We will discuss your weight bearing, range of motion, and lifting restrictions in detail at your first post-operative appointment. Continuous Passive Motion (CPM) Machine If you were prescribed a CPM machine, it will start after your first post- operative appointment, at which time we will give you instructions on the range of motion settings and duration of treatment Physical therapy You will be given a prescription for physical therapy or occupational therapy at your first post-operative appointment. Typically, patients start therapy within 1 week of surgery Wound care and showering We will inspect your wound at your first post-operative visit, and may do a dressing change at that time. Most patients will be in a water-proof dressing that is removed 14 days after surgery. It is normal to see some dried blood on the dressing. Do not remove your dressing, paper strips or sutures yourself unless you are given permission. Showering is allowed the day after surgery. Do not scrub or remove any dressings. The wound should not be submerged underwater (i.e. in a bathtub or pool) until 4 weeks after surgery SRINI stockings If you were given white stockings, these are to be worn at all times except to shower (on both legs) for the first 2 weeks after surgery. Driving You may not drive while taking narcotic pain medication or while in a cast, splint, sling or brace. You, the patient, need to make the final determination about when you are safe to drive, however, the earliest you may consider driving after surgery is below: Hand/Wrist/Elbow Surgery: 3 days Shoulder Surgery: 2 weeks Hip,/Knee/Ankle Surgery: 4 weeks Fracture repair: 6 weeks Return to Work Your return to work depends on what surgery was done and what type of work you do. Please bring any paperwork your employer needs completed to your first post-operative visit. Also, bring a description of your job duties, as this helps us to understand what risks you may face at work. Travel Avoid long distance travel (greater than 1 hour) in airplanes and cars for the first 6 weeks after surgery. If you must travel, you need to have a Doppler ultrasound done before you travel to rule out a blood clot in your legs. Follow-up You should have a follow-up appointment already scheduled 1-2 days after surgery. If not, please contact our office to make this appointment before you leave the hospital. When to call the office It is normal to have swelling and bruising in the limb that was operated on. This will improve with time. It is also normal to have fevers for the first 2 days after surgery. Reasons you should call your doctor include: Uncontrolled pain; Nausea, vomiting, or constipation that does not improve with medication; Fevers over 101.5, chills, sweats; Drainage or bleeding from the wound; Foul odor; Spreading areas of redness; Any other concerns Pending Studies at Discharge: No Stand-Alone Forms: [facility] Medications and DC Order Prescriptions: New oxycodone 5 mg tablet 5 mg PO Q4H MDD 1-2 tabs po q 4 hrs post op Qty: 30 RF: 0 Xarelto 10 mg tablet 10 mg PO DAILY 21 Days Qty: 21 RF: 0 Continued atorvastatin 40 mg Tablet 80 mg PO QAM Qty: 30 RF: 0 aspirin [Ecotrin Low Strength] 81 mg Tablet,Delayed Release (Dr/Ec) 81 mg PO QAM Qty: 30 RF: 0 nitroglycerin [Nitrostat] 0.4 mg Tablet, Sublingual 0.4 mg sublingual UD PRN (Reason: chest pain) Qty: 30 RF: 0 metoprolol succinate 25 mg Tablet Extended Release 24 Hr 25 mg PO QAM Qty: 30 RF: 0 Discharge Orders: Discharge Order (Routine); Ordered 05/03/20 Ordered By: Wallace Martinez Admission Data Admit Date/Time: 05/02/20 16:01 Attending Provider: Twin Camejo Admit Provider: Tiwn Camejo Primary Care Provider: Phong Cason Other Providers: Vaibhav Dennison
== END 2020-05-03 13:22 | disposition home or self-care (01) | DRG 489 ==
LOC: 3E 10:03 → ASU 10:03 → OBSVTOIN 16:01